=== PATIENT | female | born 1985 | race Caucasian/White ===

== ENCOUNTER 2017-02-26 21:25 | Observation (INO) | payer BC ==
[2017-02-26] MEDS ORDERED: Sodium Chloride 0.9% 10 ML Syringe FLUSH PRN (21:35)
[2017-02-26] MEDS ORDERED: Sodium Chloride 0.9% 2.5 ML Syringe FLUSH PRN (21:35)
[2017-02-26] MEDS ORDERED: Sodium Chloride 0.9% 1,000 ML IV ONE (21:37)
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
[2017-02-26 22:18] LABS: CHLORIDE,CL 108 mmol/L (98-110); SODIUM,NA 145 mmol/L (136-146)
[2017-02-26] MEDS ORDERED: Magnesium Oxide 400 MG Tab PO ONE (22:31)
[2017-02-27] MEDS ORDERED: Ondansetron 4 MG/2 ML SDV IVPUSH PRN (00:40)
[2017-02-27] MEDS ORDERED: Sodium Chloride 0.9% 1,000 ML IV SCH (00:45)
[2017-02-27] MEDS ORDERED: Thiamine 200 MG/2 ML MDV IV SCH (00:45)
[2017-02-27] MEDS ORDERED: Magnesium Sulfate/Water 2 GM in Premix Bag 1 BAG IV ONE (01:44)
[2017-02-27] MEDS: Folic Acid 50 MG/10 ML MDV SUBCUT SCH ×2 (01:49→09:18)
[2017-02-27] MEDS: LORazepam 2 MG/ML MDV IVPUSH PRN ×2 (02:05→09:19)
[2017-02-27] MEDS: Thiamine 100 MG in Sodium Chloride 0.9% 100 ML IV SCH ×2 (02:10→09:18)
[2017-02-27 06:08] LABS: CHLORIDE,CL 109 mmol/L (98-110); SODIUM,NA 142 mmol/L (136-146)
[2017-02-27 08:02] VITALS: BP 93/53
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
== END 2017-02-27 14:14 | disposition home or self-care (01) ==
LOC: MW.ED 21:25 → EDSEX 21:25 → MW.MS 23:49 → MW.ICU 02-27 01:52
PROVIDERS: ADMIT Internal Medicine; ATTEND Internal Medicine
DX: F10.129 Alcohol abuse with intoxication, unspecified (principal); M17.12 Unilateral primary osteoarthritis, left knee; F17.210 Nicotine dependence, cigarettes, uncomplicated; Z98.51 Tubal ligation status; Z98.890 Other specified postprocedural states; Z79.899 Other long term (current) drug therapy
CPT/HCPCS: 36415; 70450; 71010; 72170; 73560; 80048; 80053; 80305; 81001; 83735; 84702; 85025; 93005; 96361; 96365; 96367; 96372; 96375; 96376; 99285; A9270; G0378; G0480; J2060; J3411; J3475; J7030; J7040; 96360

== ENCOUNTER 2017-04-12 17:31 | Emergency (ER) | payer BC ==
[2017-04-12] MEDS ORDERED: Sodium Chloride 0.9% 1,000 ML IV ONE ×2 (17:34→18:10)
[2017-04-12] MEDS ORDERED: Ondansetron 4 MG/2 ML SDV IVPUSH ONE (17:34)
--- NOTE | 2017-04-12 18:18 | EDM.PDOC ---
ED HPI GENERAL MEDICAL PROBLEM - General Chief Complaint: General Stated Complaint: WEAKNESS, SICKNESS Time Seen by Provider: 04/12/17 17:35 Source of Information: Reports: Patient History Limitations: Reports: No Limitations - History of Present Illness INITIAL COMMENTS - FREE TEXT/NARRATIVE: History of present illness: [31-year-old female presenting to ED via EMS secondary to complaints of being weak. Patient indicates that she does drink everyday but denies drug] Review of systems: As per history of present illness and below otherwise all systems reviewed and negative. Past medical history: As per history of present illness and as reviewed below otherwise noncontributory. Surgical history: As per history of present illness and as reviewed below otherwise noncontributory. Social history: No reported history of drug or alcohol abuse. Family history: As per history of present illness and as reviewed below otherwise noncontributory. Physical exam: HEENT: Atraumatic, normocephalic, pupils reactive, negative for conjunctival pallor or scleral icterus, mucous membranes moist, throat clear, neck supple, nontender, trachea midline. Lungs: Clear to auscultation, breath sounds equal bilaterally, chest nontender. Heart: S1S2, regular, negative for clicks, rubs, or JVD. Abdomen: Soft, nondistended, nontender. Negative for masses or hepatosplenomegaly. Negative for costovertebral tenderness. Pelvis: Stable nontender. Genitourinary: Deferred. Rectal: Deferred. Extremities: Atraumatic, negative for cords or calf pain. Neurovascular unremarkable. Neuro: Awake, alert, oriented. Cranial nerves II through XII unremarkable. Cerebellum unremarkable. Motor and sensory unremarkable throughout. Exam nonfocal. Patient hypotensive with lactic acid level obtain blood cultures obtained you have had started at 2 mics per kilo per minute and the third liter of normal saline initiated. Patient continues to be verbally responsive and oriented to place and time despite having a mean arterial pressure 45-50 Spoke to Abena Rodrigez in the ED he agreed to receive patient is a transfer ER to ER. Diagnostics: [CBC, CMP, amylase, lipase, urine drug screen, UA, EtOH, blood cultures, lactic acid] Therapeutics: [IV fluid and Levophed, Zosyn, and] Impression: [Renal failure, hypertension] Plan: [Transfer] Definitive disposition and diagnosis as appropriate pending reevaluation and review of above. 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 Psychiatric History: Reports: None Endocrine/Metabolic History: Reports: None Hematologic History: Reports: None Immunologic History: Reports: None Oncologic (Cancer) History: Reports: None Dermatologic History: Reports: None - Infectious Disease History Infectious Disease History: Reports: Chicken Pox - Past Surgical History Head Surgeries/Procedures: Reports: None HEENT Surgical History: Reports: None Cardiovascular Surgical History: Reports: None Respiratory Surgical History: Reports: None GI Surgical History: Reports: None Female Surgical History: Reports: D&C, Tubal Ligation Endocrine Surgical History: Reports: None Neurological Surgical History: Reports: None Musculoskeletal Surgical History: Reports: None Dermatological Surgical History: Reports: None Social & Family History - Family History Family Medical History: Noncontributory - Tobacco Use Smoking Status *Q: Never Smoker Years of Tobacco use: 10 Packs/Tins Daily: 0.5 Second Hand Smoke Exposure: No - Caffeine Use Caffeine Use: Reports: None - Alcohol Use Days Per Week of Alcohol Use: 5 Number of Drinks Per Day: 2 Total Drinks Per Week: 10 - Recreational Drug Use Recreational Drug Use: No ED ROS GENERAL - Review of Systems Review Of Systems: See Below (History of present illness) ED EXAM, GENERAL - Physical Exam Exam: See Below (See history of present illness) Course - Vital Signs Last Recorded V/S: Last Vital Signs Temp 36.7 C 04/12/17 19:05 Pulse 110 H 04/12/17 19:05 Resp 14 04/12/17 19:05 BP 66/33 L 04/12/17 19:05 Pulse Ox 100 04/12/17 19:05 - Orders/Labs/Meds Orders: Active Orders 24 hr Category Date Time Status EKG Documentation Completion [RC] STAT Care 04/12/17 18:32 Active AMYLASE [CHEM] Stat Lab 04/12/17 17:51 Results COMPREHENSIVE METABOLIC PN,CMP [CHEM] Stat Lab 04/12/17 17:51 Results CULTURE BLOOD [BC] Stat Lab 04/12/17 18:22 Ordered CULTURE BLOOD [BC] Stat Lab 04/12/17 18:22 Ordered LIPASE [CHEM] Stat Lab 04/12/17 17:51 Results Norepinephrine [Levophed] 4 mg Med 04/12/17 18:45 Active Sodium Chloride 0.9% [Normal Saline] 250 ml IV TITRATE Vancomycin [Vancocin] 1 gm Med 04/12/17 19:15 Ordered Sodium Chloride 0.9% [Normal Saline] 250 ml IV ONETIME Blood Culture x2 Reflex Set [OM.PC] Stat Oth 04/12/17 18:22 Ordered Medication Orders Norepinephrine Bitartrate 4 mg (/ Sodium Chloride) 254 mls @ 7.62 mls/hr IV TITRATE KATIE; 2 MCG/MIN PRN Reason: Protocol Labs: Laboratory Tests 04/12/17 04/12/17 04/12/17 Range/Units 17:51 17:51 17:51 WBC 11.12 H (4.0-11.0) K/uL RBC 3.63 L (4.30-5.90) M/uL Hgb 10.8 L (12.0-16.0) g/dL Hct 36.6 (36.0-46.0) % MCV 100.8 H (80.0-98.0) fL MCH 29.8 (27.0-32.0) pg MCHC 29.5 L (31.0-37.0) g/dL RDW Std Deviation 58.3 (28.0-62.0) fl RDW Coeff of Diane 16 H (11.0-15.0) % Plt Count 87 L (150-400) K/uL MPV 10.80 (7.40-12.00) fL Add Manual Diff YES Neutrophils % (Manual) 68 (48.0-80.0) % Band Neutrophils % 8 % Lymphocytes % (Manual) 9 L (16.0-40.0) % Monocytes % (Manual) 15 (0.0-15.0) % Nucleated RBC % 0.0 /100WBC Absolute Seg Neuts 7.6 Band Neutrophils # 0.9 Lymphocytes # (Manual) 1.0 Monocytes # (Manual) 1.7 Nucleated RBCs # 0 K/uL Lactate (0.20-2.00) mmol/L Sodium 134 L (136-146) mmol/L Chloride 88 L (98-110) mmol/L BUN 21 (6.0-23.0) mg/dL Creatinine 3.8 H (0.6-1.5) mg/dL Est Cr Clr Drug Dosing 16.66 mL/min Estimated GFR (MDRD) 13.8 ml/min Glucose 97 (60-110) mg/dL POC Glucose (60-110) mg/dL Calcium 7.3 L (8.8-10.8) mg/dL Total Bilirubin 1.2 (0.1-1.5) mg/dL AST 109 H (5-40) IU/L ALT 46 (8-54) IU/L Alkaline Phosphatase 120 (40-150) Troponin I < 0.10 (0.0-0.29) NG/ML Total Protein 7.7 (6.0-8.0) g/dL Albumin 4.2 (3.5-5.0) g/dL Globulin 3.5 (2.0-3.5) g/dL Albumin/Globulin Ratio 1.2 L (1.3-2.8) Amylase 63 (10-90) U/L Lipase 148 H (7-80) U/L Urine Color Urine Appearance Urine pH (5.0-8.0) Ur Specific [place] (1.001-1.035) Urine Protein (NEGATIVE) mg/dL Urine Glucose (UA) (NEGATIVE) mg/dL Urine Ketones (NEGATIVE) mg/dL Urine Occult Blood (NEGATIVE) Urine Nitrite (NEGATIVE) Urine Bilirubin (NEGATIVE) Urine Urobilinogen (<2.0) EU/dL Ur Leukocyte Esterase (NEGATIVE) Urine RBC (0-2/HPF) Urine WBC (0-5/HPF) Ur Epithelial Cells (NONE-FEW) Amorphous Sediment (NEGATIVE) Urine Bacteria (NEGATIVE) Urine HCG, Qual (NEGATIVE) Urine Opiates Screen (NEGATIVE) Ur Oxycodone Screen (NEGATIVE) Urine Methadone Screen (NEGATIVE) Ur Barbiturates Screen (NEGATIVE) Ur Phencyclidine Scrn (NEGATIVE) Ur Amphetamine Screen (NEGATIVE) U Methamphetamines Scrn (NEGATIVE) U Benzodiazepines Scrn (NEGATIVE) U Cocaine Metab Screen (NEGATIVE) U Marijuana (THC) Screen (NEGATIVE) Ethyl Alcohol mg/dL 04/12/17 04/12/17 04/12/17 Range/Units 17:51 17:56 18:00 WBC (4.0-11.0) K/uL RBC (4.30-5.90) M/uL Hgb (12.0-16.0) g/dL Hct (36.0-46.0) % MCV (80.0-98.0) fL MCH (27.0-32.0) pg MCHC (31.0-37.0) g/dL RDW Std Deviation (28.0-62.0) fl RDW Coeff of Diane (11.0-15.0) % Plt Count (150-400) K/uL MPV (7.40-12.00) fL Add Manual Diff Neutrophils % (Manual) (48.0-80.0) % Band Neutrophils % % Lymphocytes % (Manual) (16.0-40.0) % Monocytes % (Manual) (0.0-15.0) % Nucleated RBC % /100WBC Absolute Seg Neuts Band Neutrophils # Lymphocytes # (Manual) Monocytes # (Manual) Nucleated RBCs # K/uL Lactate (0.20-2.00) mmol/L Sodium (136-146) mmol/L Chloride (98-110) mmol/L BUN (6.0-23.0) mg/dL Creatinine (0.6-1.5) mg/dL Est Cr Clr Drug Dosing mL/min Estimated GFR (MDRD) ml/min Glucose (60-110) mg/dL POC Glucose 110 (60-110) mg/dL Calcium (8.8-10.8) mg/dL Total Bilirubin (0.1-1.5) mg/dL AST (5-40) IU/L ALT (8-54) IU/L Alkaline Phosphatase (40-150) Troponin I (0.0-0.29) NG/ML Total Protein (6.0-8.0) g/dL Albumin (3.5-5.0) g/dL Globulin (2.0-3.5) g/dL Albumin/Globulin Ratio (1.3-2.8) Amylase (10-90) U/L Lipase (7-80) U/L Urine Color Urine Appearance Urine pH (5.0-8.0) Ur Specific [place] (1.001-1.035) Urine Protein (NEGATIVE) mg/dL Urine Glucose (UA) (NEGATIVE) mg/dL Urine Ketones (NEGATIVE) mg/dL Urine Occult Blood (NEGATIVE) Urine Nitrite (NEGATIVE) Urine Bilirubin (NEGATIVE) Urine Urobilinogen (<2.0) EU/dL Ur Leukocyte Esterase (NEGATIVE) Urine RBC (0-2/HPF) Urine WBC (0-5/HPF) Ur Epithelial Cells (NONE-FEW) Amorphous Sediment (NEGATIVE) Urine Bacteria (NEGATIVE) Urine HCG, Qual NEGATIVE (NEGATIVE) Urine Opiates Screen (NEGATIVE) Ur Oxycodone Screen (NEGATIVE) Urine Methadone Screen (NEGATIVE) Ur Barbiturates Screen (NEGATIVE) Ur Phencyclidine Scrn (NEGATIVE) Ur Amphetamine Screen (NEGATIVE) U Methamphetamines Scrn (NEGATIVE) U Benzodiazepines Scrn (NEGATIVE) U Cocaine Metab Screen (NEGATIVE) U Marijuana (THC) Screen (NEGATIVE) Ethyl Alcohol 238.4 mg/dL 04/12/17 04/12/17 04/12/17 Range/Units 18:00 18:00 18:52 WBC (4.0-11.0) K/uL RBC (4.30-5.90) M/uL Hgb (12.0-16.0) g/dL Hct (36.0-46.0) % MCV (80.0-98.0) fL MCH (27.0-32.0) pg MCHC (31.0-37.0) g/dL RDW Std Deviation (28.0-62.0) fl RDW Coeff of Diane (11.0-15.0) % Plt Count (150-400) K/uL MPV (7.40-12.00) fL Add Manual Diff Neutrophils % (Manual) (48.0-80.0) % Band Neutrophils % % Lymphocytes % (Manual) (16.0-40.0) % Monocytes % (Manual) (0.0-15.0) % Nucleated RBC % /100WBC Absolute Seg Neuts Band Neutrophils # Lymphocytes # (Manual) Monocytes # (Manual) Nucleated RBCs # K/uL Lactate 9.9 H (0.20-2.00) mmol/L Sodium (136-146) mmol/L Chloride (98-110) mmol/L BUN (6.0-23.0) mg/dL Creatinine (0.6-1.5) mg/dL Est Cr Clr Drug Dosing mL/min Estimated GFR (MDRD) ml/min Glucose (60-110) mg/dL POC Glucose (60-110) mg/dL Calcium (8.8-10.8) mg/dL Total Bilirubin (0.1-1.5) mg/dL AST (5-40) IU/L ALT (8-54) IU/L Alkaline Phosphatase (40-150) Troponin I (0.0-0.29) NG/ML Total Protein (6.0-8.0) g/dL Albumin (3.5-5.0) g/dL Globulin (2.0-3.5) g/dL Albumin/Globulin Ratio (1.3-2.8) Amylase (10-90) U/L Lipase (7-80) U/L Urine Color DARK YELLOW Urine Appearance SLT CLOUDY Urine pH 5.5 (5.0-8.0) Ur Specific [place] >= 1.030 (1.001-1.035) Urine Protein 100 (NEGATIVE) mg/dL Urine Glucose (UA) NEGATIVE (NEGATIVE) mg/dL Urine Ketones TRACE H (NEGATIVE) mg/dL Urine Occult Blood LARGE H (NEGATIVE) Urine Nitrite NEGATIVE (NEGATIVE) Urine Bilirubin SMALL H (NEGATIVE) Urine Urobilinogen 1.0 (<2.0) EU/dL Ur Leukocyte Esterase NEGATIVE (NEGATIVE) Urine RBC 3-5 (0-2/HPF) Urine WBC 0-1 (0-5/HPF) Ur Epithelial Cells FEW (NONE-FEW) Amorphous Sediment MODERATE (NEGATIVE) Urine Bacteria FEW (NEGATIVE) Urine HCG, Qual (NEGATIVE) Urine Opiates Screen NEGATIVE (NEGATIVE) Ur Oxycodone Screen NEGATIVE (NEGATIVE) Urine Methadone Screen NEGATIVE (NEGATIVE) Ur Barbiturates Screen NEGATIVE (NEGATIVE) Ur Phencyclidine Scrn NEGATIVE (NEGATIVE) Ur Amphetamine Screen NEGATIVE (NEGATIVE) U Methamphetamines Scrn NEGATIVE (NEGATIVE) U Benzodiazepines Scrn NEGATIVE (NEGATIVE) U Cocaine Metab Screen NEGATIVE (NEGATIVE) U Marijuana (THC) Screen NEGATIVE (NEGATIVE) Ethyl Alcohol mg/dL Meds: Medications Generic Name Dose Route Start Last Admin Trade Name Freq PRN Reason Stop Dose Admin Norepinephrine Bitartrate 4 mg 254 mls @ 7.62 mls/hr 04/12/17 18:45 / Sodium Chloride IV TITRATE KATIE Protocol 2 MCG/MIN Discontinued Medications Generic Name Dose Route Start Last Admin Trade Name Nick PRN Reason Stop Dose Admin Sodium Chloride 1,000 mls @ 999 mls/hr 04/12/17 17:34 04/12/17 17:54 Normal Saline IV 04/12/17 18:34 999 mls/hr STAT ONE Administration Sodium Chloride 1,000 mls @ 999 mls/hr 04/12/17 18:10 04/12/17 18:13 Normal Saline IV 04/12/17 19:10 999 mls/hr .Bolus ONE Administration Piperacillin Sod/Tazobactam 50 mls @ 100 mls/hr 04/12/17 18:22 04/12/17 19:02 Sod 3.375 gm/ Sodium Chloride IV 04/12/17 18:51 100 mls/hr ONETIME ONE Administration Norepinephrine Bitartrate Confirm 04/12/17 18:46 04/12/17 19:01 Norepinephr-0.9% Nacl 4 Mg/250 Administered 04/12/17 18:47 2 mg Dose Administration 250 mls @ as directed IV .STK-MED ONE Ondansetron HCl 8 mg 04/12/17 17:34 04/12/17 17:54 Zofran IVPUSH 04/12/17 17:35 8 mg ONETIME ONE Administration Departure - Departure Time of Disposition: 19:31 Disposition: DC/Tfer to Acute Hospital 02 Condition: fair Clinical Impression: Hypotension, Acute renal failure - Discharge Information Forms: ED Department Discharge - My Orders Last 24 Hours: My Active Orders 04/12/17 18:22 CULTURE BLOOD [BC] Stat CULTURE BLOOD [BC] Stat Blood Culture x2 Reflex Set [OM.PC] Stat 04/12/17 18:32 EKG Documentation Completion [RC] STAT 04/12/17 18:45 Norepinephrine [Levophed] 4 mg Sodium Chloride 0.9% [Normal Saline] 250 ml IV TITRATE 04/12/17 19:15 Vancomycin [Vancocin] 1 gm Sodium Chloride 0.9% [Normal Saline] 250 ml IV ONETIME - Assessment/Plan Last 24 Hours: My Active Orders 04/12/17 18:22 CULTURE BLOOD [BC] Stat CULTURE BLOOD [BC] Stat Blood Culture x2 Reflex Set [OM.PC] Stat 04/12/17 18:32 EKG Documentation Completion [RC] STAT 04/12/17 18:45 Norepinephrine [Levophed] 4 mg Sodium Chloride 0.9% [Normal Saline] 250 ml IV TITRATE 04/12/17 19:15 Vancomycin [Vancocin] 1 gm Sodium Chloride 0.9% [Normal Saline] 250 ml IV ONETIME
[2017-04-12 18:20] LABS: CHLORIDE,CL 88 mmol/L (98-110); SODIUM,NA 134 mmol/L (136-146)
[2017-04-12] MEDS ORDERED: Piperacillin/Tazobactam 3.375 GM in Sodium Chloride 0.9% 50 ML IV ONE (18:22)
[2017-04-12] MEDS ORDERED: Norepinephrine 4 MG in Dextrose 5% in Water 246 ML IV SCH ×2 (18:30)
[2017-04-12] MEDS ORDERED: Hydrocortisone Sodium Succinate 100 MG/2 ML SDV IVPUSH ONE (19:36)
[2017-04-12 20:42] VITALS: BP 79/43
== END 2017-04-12 20:25 ==
LOC: MW.ED 17:31
DX: I95.9 Hypotension, unspecified (principal); N17.9 Acute kidney failure, unspecified; Z98.51 Tubal ligation status
CPT/HCPCS: 36415; 80053; 80305; 81001; 81025; 82150; 82962; 83605; 83690; 84484; 85025; 87040; 93005; 96361; 96365; 96367; 96375; 99285; G0480; J1720; J2405; J2543; J3370; J7040; J7050

== ENCOUNTER 2017-05-25 11:31 | Emergency (ER) | payer BC ==
[2017-05-25] MEDS ORDERED: Sodium Chloride 0.9% 1,000 ML IV ONE (11:32)
[2017-05-25] MEDS ORDERED: Ondansetron 4 MG/2 ML SDV IVPUSH ONE (11:47)
--- NOTE | 2017-05-25 12:03 | EDM.PDOC ---
ED HPI GENERAL MEDICAL PROBLEM - General Chief Complaint: Gastrointestinal Problem Stated Complaint: ALCOHOL DETOX Time Seen by Provider: 05/25/17 11:44 - History of Present Illness INITIAL COMMENTS - FREE TEXT/NARRATIVE: HISTORY AND PHYSICAL: History of present illness: Is 31-year-old female with history of alcohol abuse presents with a concern of hyperemesis she denies chest pain shortness of breath fever chills or other concern she states she was drinking heavily yesterday. Review of systems: As per history of present illness and below otherwise all systems reviewed and negative. Past medical history: As per history of present illness and as reviewed below otherwise noncontributory. Surgical history: As per history of present illness and as reviewed below otherwise noncontributory. Social history: No reported history of drug or alcohol abuse. Family history: As per history of present illness and as reviewed below otherwise noncontributory. Physical exam: HEENT: Atraumatic, normocephalic, pupils reactive, negative for conjunctival pallor or scleral icterus, mucous membranes dry, throat clear, neck supple, nontender, trachea midline. Lungs: Clear to auscultation, breath sounds equal bilaterally, chest nontender. Heart: S1S2, regular, negative for clicks, rubs, or JVD. Abdomen: Soft, nondistended, nontender. Negative for masses or hepatosplenomegaly. Negative for costovertebral tenderness. Pelvis: Stable nontender. Genitourinary: Deferred. Rectal: Deferred. Extremities: Atraumatic, negative for cords or calf pain. Neurovascular unremarkable. Neuro: Awake, alert, oriented. Cranial nerves II through XII unremarkable. Cerebellum unremarkable. Motor and sensory unremarkable throughout. Exam nonfocal. Diagnostics: CBC CMP lipase UA hCG chest x-ray Therapeutics: Normal saline 1 L bolus Zofran 4 mg IV Impression: #1 alcohol abuse #2 hyperemesis Definitive disposition and diagnosis as appropriate pending reevaluation and review of above. abdomen Pain Score (Numeric/FACES): 8 - Related Data Allergies Allergy/AdvReac Type Severity Reaction Status Date / Time No Known Allergies Allergy Verified 05/25/17 11:40 Home Meds: Home Meds LORazepam [Ativan] 0 mg PO Q6HR PRN 02/26/17 [History] Past Medical History HEENT History: Reports: None Cardiovascular History: Reports: None Respiratory History: Reports: None Gastrointestinal History: Reports: Pancreatitis Genitourinary History: Reports: None [employer] WORK[employer] History: Reports: Musculoskeletal History: Reports: Arthritis Other Musculoskeletal History: Arthritis to left knee Neurological History: Reports: Concussion, Seizure Other Neuro History: Voices seizure-like event x 7 months ago. Psychiatric History: Reports: None Endocrine/Metabolic History: Reports: None Hematologic History: Reports: None Immunologic History: Reports: None Oncologic (Cancer) History: Reports: None Dermatologic History: Reports: None - Infectious Disease History Infectious Disease History: Reports: Chicken Pox - Past Surgical History Head Surgeries/Procedures: Reports: None HEENT Surgical History: Reports: None Cardiovascular Surgical History: Reports: None Respiratory Surgical History: Reports: None GI Surgical History: Reports: None Female Surgical History: Reports: D&C, Tubal Ligation Endocrine Surgical History: Reports: None Neurological Surgical History: Reports: None Musculoskeletal Surgical History: Reports: None Dermatological Surgical History: Reports: None Social & Family History - Family History Family Medical History: Noncontributory - Tobacco Use Smoking Status *Q: Current Every Day Smoker Years of Tobacco use: 10 Packs/Tins Daily: 1 Second Hand Smoke Exposure: No - Caffeine Use Caffeine Use: Reports: None - Alcohol Use Days Per Week of Alcohol Use: 5 Number of Drinks Per Day: 2 Total Drinks Per Week: 10 - Recreational Drug Use Recreational Drug Use: No ED ROS GENERAL - Review of Systems Review Of Systems: ROS reveals no pertinent complaints other than HPI. ED EXAM, GENERAL - Physical Exam Exam: See Below (See dictation) Course - Vital Signs Last Recorded V/S: Last Vital Signs Temp 36.1 C 05/25/17 11:31 Pulse 123 H 05/25/17 11:31 Resp 18 05/25/17 11:31 BP 117/65 05/25/17 11:31 Pulse Ox 100 05/25/17 11:31 - Orders/Labs/Meds Orders: Active Orders 24 hr Category Date Time Status UA W/MICROSCOPIC [URIN] Stat Lab 05/25/17 11:32 Uncollected Labs: Laboratory Tests 05/25/17 05/25/17 05/25/17 Range/Units 11:46 11:46 11:46 WBC 7.36 (4.0-11.0) K/uL RBC 4.19 L (4.30-5.90) M/uL Hgb 12.8 (12.0-16.0) g/dL Hct 40.0 (36.0-46.0) % MCV 95.5 (80.0-98.0) fL MCH 30.5 (27.0-32.0) pg MCHC 32.0 (31.0-37.0) g/dL RDW Std Deviation 56.7 (28.0-62.0) fl RDW Coeff of Diane 16 H (11.0-15.0) % Plt Count 137 L (150-400) K/uL MPV 9.60 (7.40-12.00) fL Add Manual Diff YES Neutrophils % (Manual) 84 H (48.0-80.0) % Band Neutrophils % 1 % Lymphocytes % (Manual) 13 L (16.0-40.0) % Eosinophils % (Manual) 2 (0.0-7.0) % Nucleated RBC % 0.0 /100WBC Absolute Seg Neuts 6.2 Band Neutrophils # 0.1 Lymphocytes # (Manual) 1.0 Eosinophils # (Manual) 0.1 Nucleated RBCs # 0 K/uL Sodium 138 (136-146) mmol/L Potassium 4.8 (3.5-5.1) mmol/L Chloride 90 L (98-110) mmol/L Carbon Dioxide 7 L (21-31) mmol/L BUN 18 (6.0-23.0) mg/dL Creatinine 1.7 H (0.6-1.5) mg/dL Est Cr Clr Drug Dosing 35.72 mL/min Estimated GFR (MDRD) 34.8 ml/min Glucose 125 H (60-110) mg/dL Calcium 8.6 L (8.8-10.8) mg/dL Total Bilirubin 1.0 (0.1-1.5) mg/dL AST 84 H (5-40) IU/L ALT 47 (8-54) IU/L Alkaline Phosphatase 152 H (40-150) Total Protein 9.4 H (6.0-8.0) g/dL Albumin 5.0 (3.5-5.0) g/dL Globulin 4.4 H (2.0-3.5) g/dL Albumin/Globulin Ratio 1.1 L (1.3-2.8) Amylase 38 (10-90) U/L Lipase 48 (7-80) U/L HCG, Qual NEGATIVE (NEG) Meds: Medications Discontinued Medications Generic Name Dose Route Start Last Admin Trade Name Nick PRN Reason Stop Dose Admin Sodium Chloride 1,000 mls @ 999 mls/hr 05/25/17 11:32 05/25/17 11:49 Normal Saline IV 05/25/17 12:32 999 mls/hr .Bolus ONE Administration Ondansetron HCl 4 mg 05/25/17 11:47 05/25/17 11:51 Zofran IVPUSH 05/25/17 11:48 4 mg ONETIME ONE Administration Departure - Departure Time of Disposition: 12:50 Disposition: Home, Self-Care 01 Condition: Good Clinical Impression: Gastritis, Alcohol abuse - Discharge Information Forms: ED Department Discharge Additional Instructions: The following information is given to patients seen in the emergency department who are being discharged to home. This information is to outline your options for follow-up care. We provide all patients seen in our emergency department with a follow-up referral. The need for follow-up, as well as the timing and circumstances, are variable depending upon the specifics of your emergency department visit. If you don't have a primary care physician on staff, we will provide you with a referral. We always advise you to contact your personal physician following an emergency department visit to inform them of the circumstance of the visit and for follow-up with them and/or the need for any referrals to a consulting specialist. The emergency department will also refer you to a specialist when appropriate. This referral assures that you have the opportunity for followup care with a specialist. All of these measure are taken in an effort to provide you with optimal care, which includes your followup. Under all circumstances we always encourage you to contact your private physician who remains a resource for coordinating your care. When calling for followup care, please make the office aware that this follow-up is from your recent emergency room visit. If for any reason you are refused follow-up, please contact the [facility] emergency department at and asked to speak to the emergency department charge nurse. [facility] [address] [place] [id number] Stop drinking Protonix as prescribed clear liquids and 24 hours return as needed as discussed - My Orders Last 24 Hours: My Active Orders 05/25/17 11:32 UA W/MICROSCOPIC [URIN] Stat - Assessment/Plan Last 24 Hours: My Active Orders 05/25/17 11:32 UA W/MICROSCOPIC [URIN] Stat
--- NOTE | 2017-05-25 12:46 | CR ---
EXAMINATION: Portable chest radiograph. HISTORY: Pain. FINDINGS: The trachea is midline. The cardiomediastinal silhouette is within normal limits. No pulmonary infil trates, effusions or pneumothorax. Osseous structures appear unremarkable. There is S-shaped scoliosis of the thoracolumbar spine. IMPRESSION: No acute cardiopulmonary process.
[2017-05-25 13:09] VITALS: BP 122/61
== END 2017-05-25 13:03 | disposition home or self-care (01) ==
LOC: MW.ED 11:31
DX: K29.70 Gastritis, unspecified, without bleeding (principal); F10.10 Alcohol abuse, uncomplicated; M19.90 Unspecified osteoarthritis, unspecified site; F17.210 Nicotine dependence, cigarettes, uncomplicated; Z98.51 Tubal ligation status
CPT/HCPCS: 36415; 71010; 80053; 82150; 83690; 84703; 85025; 96361; 96374; 99284; J2405; J7040; 99282

== ENCOUNTER 2017-07-11 11:49 | Inpatient (IN) | payer BC ==
--- NOTE | 2017-07-11 12:30 | EDM.PDOC ---
ED HPI GENERAL MEDICAL PROBLEM - General Stated Complaint: WITHDRAWAL Time Seen by Provider: 07/11/17 12:20 Source of Information: Reports: Patient History Limitations: Reports: No Limitations - History of Present Illness INITIAL COMMENTS - FREE TEXT/NARRATIVE: HISTORY AND PHYSICAL: [] 31-year-old female presenting with abdominal pain she has stopped drinking since last night history of chronic drinking 750 mL daily History of Present Illness: []This is the first time the patient has ever stated that she wanted to stop her drinking according to the Patient states she's had pancreatitis in the past She has had a "seizure" last night, unwitnessed Patient has had enlarged liver and liver enzymes been elevated previously Review of Systems: As per history of present illness and below otherwise all systems reviewed and negative. Past medical history: As per history of present illness and as reviewed below otherwise noncontributory. Surgical history: As per history of present illness and as reviewed below otherwise noncontributory. Social history: No reported history of drug or alcohol abuse. Family history: As per history of present illness and as reviewed below otherwise noncontributory. Physical exam: Thin female who is nontoxic answering questions appropriately in full sentences without any shortness of breath HEENT: Atraumatic, normocehpalic, pupils reactive, negative for conjunctival pallor or scleral icterus, mucous membranes moist, throat clear, neck supple, nontender, trachea midline. Lungs: Clear to auscultation, breath sounds equal bilaterally, chest non tender. Heart: S1S2, regular, negative for clicks, rubs, or JVD. Abdomen: Firm, tender to the right on palpation no rebound and no guarding. Negative for masses. Hepatomegaly CT scan. Negative for costovertebral tenderness. Pelvis: Stable nontender. Genitourinary: Deferred. Rectal: Deferred Extremities: Atraumatic, negative for cords or calf pain. Neurovascular unremarkable. Neuro: Awake, alert, oriented. Cranial nerves II through XII unremarkable. Cerebellum unremarkable. Motor and sensory unremarkable throughout. Exam nonfocal. Discussed patient with Dr. Parmar who has accepted patient admission to ICU. Diagnostics: [CBC CMP troponin abdominal pelvic CT chest x-ray] Therapeutics: [IV banana bag] Impression: [Hyponatremia Hypokalemia Alcohol dependence] Plan: []Admit to intensive care as inpatient Definitive disposition and diagnosis as appropriate pending reevaluation and review of above. Onset: Gradual Duration: Chronic, Getting Worse Location: Reports: Generalized Quality: Reports: Same as Previous Episode Severity: Moderate Associated Symptoms: Reports: Loss of Appetite generalized Pain Score (Numeric/FACES): 9 - Related Data Allergies Allergy/AdvReac Type Severity Reaction Status Date / Time No Known Allergies Allergy Verified 07/11/17 12:22 Home Meds: Home Meds . 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 Psychiatric History: Reports: None Endocrine/Metabolic History: Reports: None Hematologic History: Reports: None Immunologic History: Reports: None Oncologic (Cancer) History: Reports: None Dermatologic History: Reports: None - Infectious Disease History Infectious Disease History: Reports: Chicken Pox - Past Surgical History Head Surgeries/Procedures: Reports: None HEENT Surgical History: Reports: None Cardiovascular Surgical History: Reports: None Respiratory Surgical History: Reports: None GI Surgical History: Reports: None Female Surgical History: Reports: D&C, Tubal Ligation Endocrine Surgical History: Reports: None Neurological Surgical History: Reports: None Musculoskeletal Surgical History: Reports: None Dermatological Surgical History: Reports: None Social & Family History - Family History Family Medical History: Noncontributory - Tobacco Use Smoking Status *Q: Current Every Day Smoker Years of Tobacco use: 10 Packs/Tins Daily: 1 Second Hand Smoke Exposure: No - Caffeine Use Caffeine Use: Reports: None - Alcohol Use Days Per Week of Alcohol Use: 5 Number of Drinks Per Day: 2 Total Drinks Per Week: 10 - Recreational Drug Use Recreational Drug Use: No ED ROS GENERAL - Review of Systems Review Of Systems: ROS reveals no pertinent complaints other than HPI. ED EXAM, GENERAL - Physical Exam Exam: See Below (see dictation) Course - Vital Signs Last Recorded V/S: Last Vital Signs Temp 36.6 C 07/11/17 12:19 Pulse 97 07/11/17 13:30 Resp 16 07/11/17 13:30 BP 122/78 07/11/17 13:30 Pulse Ox 99 07/11/17 13:30 - Orders/Labs/Meds Orders: Active Orders 24 hr Category Date Time Status EKG Documentation Completion [RC] STAT Care 07/11/17 12:32 Active CBC WITH AUTO DIFF [HEME] Stat Lab 07/11/17 12:51 Received CULTURE URINE [RM] Stat Lab 07/11/17 13:01 Received MVI, Adult with Vitamin K [Infuvite Adult] 10 ml Med 07/11/17 12:39 Active Thiamine [Vitamin B-1] 100 mg Folic Acid 1 mg Sodium Chloride 0.9% [Normal Saline] 1,000 ml IV ONETIME Sodium Chloride 0.9% [Saline Flush] Med 07/11/17 12:32 Active 10 ml FLUSH ASDIRECTED PRN Sodium Chloride 0.9% [Saline Flush] Med 07/11/17 12:32 Active 2.5 ml FLUSH ASDIRECTED PRN Saline Lock Insert [OM.PC] Stat Oth 07/11/17 12:32 Ordered Medication Orders Multivitamins/Minerals 10 ml/Thiamine HCl 100 mg/ Folic Acid 1 mg/ Sodium Chloride 1,011.2 mls @ 250 drops/hr IV ONETIME ONE Stop: 07/14/17 01:19 Last Admin: 07/11/17 13:32 Dose: 250 drops/hr Sodium Chloride (Saline Flush) 10 ml FLUSH ASDIRECTED PRN PRN Reason: Keep Vein Open Sodium Chloride (Saline Flush) 2.5 ml FLUSH ASDIRECTED PRN PRN Reason: Keep Vein Open Labs: Laboratory Tests 07/11/17 07/11/17 07/11/17 Range/Units 12:51 12:51 12:51 Lactate 1.4 (0.20-2.00) mmol/L Sodium 131 L (136-146) mmol/L Potassium 2.8 L (3.5-5.1) mmol/L Chloride 84 L (98-110) mmol/L Carbon Dioxide 33 H (21-31) mmol/L BUN 11 (6.0-23.0) mg/dL Creatinine 0.6 (0.6-1.5) mg/dL Est Cr Clr Drug Dosing 104.98 mL/min Estimated GFR (MDRD) > 60.0 ml/min Glucose 128 H (60-110) mg/dL Calcium 10.5 (8.8-10.8) mg/dL Total Bilirubin 2.1 H (0.1-1.5) mg/dL AST 180 H (5-40) IU/L ALT 88 H (8-54) IU/L Alkaline Phosphatase 155 H (40-150) Troponin I < 0.10 (0.0-0.29) NG/ML Total Protein 8.0 (6.0-8.0) g/dL Albumin 4.0 (3.5-5.0) g/dL Globulin 4.0 H (2.0-3.5) g/dL Albumin/Globulin Ratio 1.0 L (1.3-2.8) Lipase 277 H (7-80) U/L TSH 3rd Generation 8.34 H (0.47-5.0) uIU/mL HCG, Qual (NEG) Urine Color Urine Appearance Urine pH (5.0-8.0) Ur Specific [place] (1.001-1.035) Urine Protein (NEGATIVE) mg/dL Urine Glucose (UA) (NEGATIVE) mg/dL Urine Ketones (NEGATIVE) mg/dL Urine Occult Blood (NEGATIVE) Urine Nitrite (NEGATIVE) Urine Bilirubin (NEGATIVE) Urine Ictotest Urine Urobilinogen (<2.0) EU/dL Ur Leukocyte Esterase (NEGATIVE) Urine RBC (0-2/HPF) Urine WBC (0-5/HPF) Ur Epithelial Cells (NONE-FEW) Amorphous Sediment (NEGATIVE) Urine Bacteria (NEGATIVE) Urine HCG, Qual (NEGATIVE) Urine Opiates Screen (NEGATIVE) Ur Oxycodone Screen (NEGATIVE) Urine Methadone Screen (NEGATIVE) Ur Barbiturates Screen (NEGATIVE) Ur Phencyclidine Scrn (NEGATIVE) Ur Amphetamine Screen (NEGATIVE) U Methamphetamines Scrn (NEGATIVE) U Benzodiazepines Scrn (NEGATIVE) U Cocaine Metab Screen (NEGATIVE) U Marijuana (THC) Screen (NEGATIVE) Ethyl Alcohol < 10.0 mg/dL 07/11/17 07/11/17 07/11/17 Range/Units 12:51 13:01 13:01 Lactate (0.20-2.00) mmol/L Sodium (136-146) mmol/L Potassium (3.5-5.1) mmol/L Chloride (98-110) mmol/L Carbon Dioxide (21-31) mmol/L BUN (6.0-23.0) mg/dL Creatinine (0.6-1.5) mg/dL Est Cr Clr Drug Dosing mL/min Estimated GFR (MDRD) ml/min Glucose (60-110) mg/dL Calcium (8.8-10.8) mg/dL Total Bilirubin (0.1-1.5) mg/dL AST (5-40) IU/L ALT (8-54) IU/L Alkaline Phosphatase (40-150) Troponin I (0.0-0.29) NG/ML Total Protein (6.0-8.0) g/dL Albumin (3.5-5.0) g/dL Globulin (2.0-3.5) g/dL Albumin/Globulin Ratio (1.3-2.8) Lipase (7-80) U/L TSH 3rd Generation (0.47-5.0) uIU/mL HCG, Qual NEGATIVE (NEG) Urine Color Urine Appearance Urine pH (5.0-8.0) Ur Specific [place] (1.001-1.035) Urine Protein (NEGATIVE) mg/dL Urine Glucose (UA) (NEGATIVE) mg/dL Urine Ketones (NEGATIVE) mg/dL Urine Occult Blood (NEGATIVE) Urine Nitrite (NEGATIVE) Urine Bilirubin (NEGATIVE) Urine Ictotest Urine Urobilinogen (<2.0) EU/dL Ur Leukocyte Esterase (NEGATIVE) Urine RBC (0-2/HPF) Urine WBC (0-5/HPF) Ur Epithelial Cells (NONE-FEW) Amorphous Sediment (NEGATIVE) Urine Bacteria (NEGATIVE) Urine HCG, Qual NEGATIVE (NEGATIVE) Urine Opiates Screen NEGATIVE (NEGATIVE) Ur Oxycodone Screen NEGATIVE (NEGATIVE) Urine Methadone Screen NEGATIVE (NEGATIVE) Ur Barbiturates Screen NEGATIVE (NEGATIVE) Ur Phencyclidine Scrn NEGATIVE (NEGATIVE) Ur Amphetamine Screen NEGATIVE (NEGATIVE) U Methamphetamines Scrn NEGATIVE (NEGATIVE) U Benzodiazepines Scrn NEGATIVE (NEGATIVE) U Cocaine Metab Screen NEGATIVE (NEGATIVE) U Marijuana (THC) Screen NEGATIVE (NEGATIVE) Ethyl Alcohol mg/dL 07/11/17 Range/Units 13:01 Lactate (0.20-2.00) mmol/L Sodium (136-146) mmol/L Potassium (3.5-5.1) mmol/L Chloride (98-110) mmol/L Carbon Dioxide (21-31) mmol/L BUN (6.0-23.0) mg/dL Creatinine (0.6-1.5) mg/dL Est Cr Clr Drug Dosing mL/min Estimated GFR (MDRD) ml/min Glucose (60-110) mg/dL Calcium (8.8-10.8) mg/dL Total Bilirubin (0.1-1.5) mg/dL AST (5-40) IU/L ALT (8-54) IU/L Alkaline Phosphatase (40-150) Troponin I (0.0-0.29) NG/ML Total Protein (6.0-8.0) g/dL Albumin (3.5-5.0) g/dL Globulin (2.0-3.5) g/dL Albumin/Globulin Ratio (1.3-2.8) Lipase (7-80) U/L TSH 3rd Generation (0.47-5.0) uIU/mL HCG, Qual (NEG) Urine Color DARK YELLOW Urine Appearance SLT CLOUDY Urine pH 8.5 H (5.0-8.0) Ur Specific [place] 1.010 (1.001-1.035) Urine Protein 30 (NEGATIVE) mg/dL Urine Glucose (UA) NEGATIVE (NEGATIVE) mg/dL Urine Ketones TRACE H (NEGATIVE) mg/dL Urine Occult Blood NEGATIVE (NEGATIVE) Urine Nitrite POSITIVE H (NEGATIVE) Urine Bilirubin MODERATE H (NEGATIVE) Urine Ictotest NEGATIVE Urine Urobilinogen >=8.0 H (<2.0) EU/dL Ur Leukocyte Esterase TRACE (NEGATIVE) Urine RBC 1-2 (0-2/HPF) Urine WBC 0-1 (0-5/HPF) Ur Epithelial Cells FEW (NONE-FEW) Amorphous Sediment FEW (NEGATIVE) Urine Bacteria RARE (NEGATIVE) Urine HCG, Qual (NEGATIVE) Urine Opiates Screen (NEGATIVE) Ur Oxycodone Screen (NEGATIVE) Urine Methadone Screen (NEGATIVE) Ur Barbiturates Screen (NEGATIVE) Ur Phencyclidine Scrn (NEGATIVE) Ur Amphetamine Screen (NEGATIVE) U Methamphetamines Scrn (NEGATIVE) U Benzodiazepines Scrn (NEGATIVE) U Cocaine Metab Screen (NEGATIVE) U Marijuana (THC) Screen (NEGATIVE) Ethyl Alcohol mg/dL Meds: Medications Generic Name Dose Route Start Last Admin Trade Name Freq PRN Reason Stop Dose Admin Multivitamins/Minerals 10 ml/ 1,011.2 mls @ 250 drops/hr 07/11/17 12:39 07/11 13:32 Thiamine HCl 100 mg/ Folic IV 07/14/17 01:19 250 drops/hr Acid 1 mg/ Sodium Chloride ONETIME ONE Administration Sodium Chloride 10 ml 07/11/17 12:32 Saline Flush FLUSH ASDIRECTED PRN Keep Vein Open Sodium Chloride 2.5 ml 07/11/17 12:32 Saline Flush FLUSH ASDIRECTED PRN Keep Vein Open Departure - Departure Time of Disposition: 14:47 Disposition: Admitted As Inpatient 65 Condition: Fair Clinical Impression: Alcohol abuse, Hyponatremia, Hypokalemia - Discharge Information Instructions: Chemical Dependency Referrals: PCP,None [Primary Care Provider] - - My Orders Last 24 Hours: My Active Orders 07/11/17 12:32 EKG Documentation Completion [RC] STAT Sodium Chloride 0.9% [Saline Flush] 10 ml FLUSH ASDIRECTED PRN Sodium Chloride 0.9% [Saline Flush] 2.5 ml FLUSH ASDIRECTED PRN Saline Lock Insert [OM.PC] Stat 07/11/17 12:39 MVI, Adult with Vitamin K [Infuvite Adult] 10 ml Thiamine [Vitamin B-1] 100 mg Folic Acid 1 mg Sodium Chloride 0.9% [Normal Saline] 1,000 ml IV ONETIME 07/11/17 12:51 CBC WITH AUTO DIFF [HEME] Stat 07/11/17 13:01 CULTURE URINE [RM] Stat - Assessment/Plan Last 24 Hours: My Active Orders 07/11/17 12:32 EKG Documentation Completion [RC] STAT Sodium Chloride 0.9% [Saline Flush] 10 ml FLUSH ASDIRECTED PRN Sodium Chloride 0.9% [Saline Flush] 2.5 ml FLUSH ASDIRECTED PRN Saline Lock Insert [OM.PC] Stat 07/11/17 12:39 MVI, Adult with Vitamin K [Infuvite Adult] 10 ml Thiamine [Vitamin B-1] 100 mg Folic Acid 1 mg Sodium Chloride 0.9% [Normal Saline] 1,000 ml IV ONETIME 07/11/17 12:51 CBC WITH AUTO DIFF [HEME] Stat 07/11/17 13:01 CULTURE URINE [RM] Stat
[2017-07-11] MEDS ORDERED: Sodium Chloride 0.9% 2.5 ML Syringe FLUSH PRN (12:32)
[2017-07-11] MEDS ORDERED: Sodium Chloride 0.9% 10 ML Syringe FLUSH PRN (12:32)
[2017-07-11] MEDS ORDERED: MVI, Adult with Vitamin K 10 ML, Thiamine 100 MG, Folic Acid 1 MG in Sodium Chloride 0.... IV ONE ×4 (12:39)
[2017-07-11 13:29] LABS: CHLORIDE,CL 84 mmol/L (98-110); SODIUM,NA 131 mmol/L (136-146)
--- NOTE | 2017-07-11 14:19 | CR ---
EXAMINATION: Two-view chest (PA and Lateral views). HISTORY: Shortness of breath. FINDINGS: The trachea is midline. The cardiomediastinal silhouette is within normal limits. No pulmonary infilt rates, effusions or pneumothorax. Osseous structures appear unremarkable. IMPRESSION: No acute cardiopulmonary process.
--- NOTE | 2017-07-11 14:26 | CT ---
CT of the abdomen and pelvis with contrast. HISTORY: Pain TECHNIQUE: Axial CT images were obtained of the abdomen and pelvis following administration of 100 mL of Isovue-370 in the left antecubital fossa without complication. Coronal and sagittal reconstructio ns obtained. FINDINGS: The lung bases are clear, no pleural effusion. The liver is enlarged and heterogeneous in density with likely areas of focal fatty sparing. Cholecys tectomy. The spleen, adrenal glands, and pancreas appear grossly normal. No bulky retroperitoneal lym phadenopathy or abdominal ascites. The kidneys enhance and function symmetrically without evidence of obstructive uropathy. The large and small bowel are normal in caliber without evidence of obstruction. No focal pericolonic inflammation or stranding. The appendix appears normal. The urinary bladder appears normal. Tubal li gation clips are present. There is a tiny right ovarian cyst. No significant free pelvic fluid. Grade 1 anterolisthesis of L5 on S1 with chronic bilateral spondylolysis. IMPRESSION: 1. Hypoechoic heterogeneous liver likely secondary to fatty infiltration. However given the degree of hepatomegaly and the decreased attenuation steatohepatitis should be considered.
[2017-07-11] MEDS ORDERED: Potassium Chloride 20 MEQ Tab.ER PO ONE (14:37)
[2017-07-11] MEDS ORDERED: Iopamidol 755 MG/ML 500 ML Multipack Bottle IVPUSH STA (14:56)
[2017-07-11] MEDS ORDERED: Sodium Chloride 0.9% 1,000 ML IV ONE (18:32)
--- NOTE | 2017-07-11 18:41 | PCM.HP ---
H&P History of Present Illness - History of Present Illness Initial Comments - Free Text/Narative: Patient is a 31 yo female with pmh of recurrent pancreatitis and alcohol abuse. She was last in rehab several months ago but quickly went back to drinking around 750 ml of liqour a day. She presented to the ED today with request for help to quit alcohol. She reports 8/10 epigastric abdominal pain. She denies any blood in her stool, nausea or vomiting. Her last drink was 24 hours ago. She reports she might have had several seizures last night as she describes feeling "out of it." These episodes were unwitnessed. CT scan of abdomen performed in ED reported hepatomegaly. generalized Pain Score (Numeric/FACES): 9 - Related Data Allergies/Adverse Reactions: Allergies Allergy/AdvReac Type Severity Reaction Status Date / Time No Known Allergies Allergy Verified 07/11/17 12:22 Home Medications: Home Meds . 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: Musculoskeletal History: Reports: Arthritis Other Musculoskeletal History: 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 Neurological History: Reports: Concussion, Seizure Other Neuro History: Alcohol withdrawal related siezures Psychiatric History: Reports: Addiction, Anxiety, Depression, Panic Attack Other Psychiatric History: ETOH abuse Endocrine/Metabolic History: Reports: None Hematologic History: Reports: None Immunologic History: Reports: None Oncologic (Cancer) History: Reports: None Dermatologic History: Reports: None - Infectious Disease History Infectious Disease History: Reports: Chicken Pox - Past Surgical History Head Surgeries/Procedures: Reports: None HEENT Surgical History: Reports: None Cardiovascular Surgical History: Reports: None Respiratory Surgical History: Reports: None GI Surgical History: Reports: Cholecystectomy, Hernia, Abdominal Female Surgical History: Reports: D&C, Tubal Ligation Endocrine Surgical History: Reports: None Neurological Surgical History: Reports: None Musculoskeletal Surgical History: Reports: None Dermatological Surgical History: Reports: None Social & Family History - Family History Family Medical History: Noncontributory - Tobacco Use Smoking Status *Q: Current Every Day Smoker Years of Tobacco use: 15 Packs/Tins Daily: 0.5 Second Hand Smoke Exposure: No - Caffeine Use Caffeine Use: Reports: None - Alcohol Use Days Per Week of Alcohol Use: 7 Number of Drinks Per Day: 4 Total Drinks Per Week: 28 Date of Last Drink: 07/11/17 Time of Last Drink: 20:30 - Recreational Drug Use Recreational Drug Use: No H&P Review of Systems - Review of Systems: Review Of Systems: ROS reveals no pertinent complaints other than HPI. Exam - Exam Exam: See Below - Vital Signs Vital Signs: Last Vital Signs Temp 36.6 C 07/11/17 12:19 Pulse 78 07/11/17 17:01 Resp 18 07/11/17 17:01 BP 114/74 07/11/17 17:01 Pulse Ox 98 07/11/17 17:01 Weight: 50.6 kg - Exam General: Alert, Oriented, 4 HEENT: Mucosa Moist & [place] Lungs: Clear to Auscultation, Normal Respiratory Effort Cardiovascular: Regular Rate, Regular Rhythm GI/Abdominal Exam: Soft, Tender (periumbilical). No: Guarding, Rigid, Rebound Extremities: Normal Range of Motion, Non-Tender, No Pedal Edema - Patient Data Result Diagrams: 07/11/17 12:51 07/11/17 12:51 *Q Meaningful Use (ADM) - VTE *Q VTE Criteria *Q: - Stroke *Q Stroke Criteria *Q: - AMI *Q AMI Criteria *Q: Problem List Initiated/Reviewed/Updated: Yes Orders Last 24hrs: Active Orders 24 hr Category Date Time Status NPO Now [Nothing per Oral Now Diet] [DIET] Diet 07/12/17 Breakfast Ordered Regular Diet [DIET] Diet 07/11/17 Dinner Active Folic Acid Med 07/12/17 09:00 Ordered 1 mg SUBCUT DAILY LORazepam [Ativan] Med 07/11/17 18:33 Ordered See Protocol IVPUSH Q4H PRN Morphine Med 07/11/17 18:33 Ordered 2 mg IVPUSH Q2H PRN Sodium Chloride 0.9% [Normal Saline] 1,000 ml Med 07/11/17 18:32 Ordered IV .Bolus Sodium Chloride 0.9% [Normal Saline] 1,000 ml Med 07/11/17 18:45 Ordered IV ASDIRECTED Thiamine [Vitamin B-1] Med 07/12/17 09:00 Ordered 100 mg IV DAILY Medication Orders Multivitamins/Minerals 10 ml/Thiamine HCl 100 mg/ Folic Acid 1 mg/ Sodium Chloride 1,011.2 mls @ 250 drops/hr IV ONETIME ONE Stop: 07/14/17 01:19 Last Admin: 07/11/17 13:32 Dose: 250 drops/hr Sodium Chloride (Normal Saline) 1,000 mls @ 1,000 mls/hr IV .Bolus ONE Stop: 07/11/17 19:31 Sodium Chloride (Normal Saline) 1,000 mls @ 200 mls/hr IV ASDIRECTED KATIE Sodium Chloride (Saline Flush) 10 ml FLUSH ASDIRECTED PRN PRN Reason: Keep Vein Open Sodium Chloride (Saline Flush) 2.5 ml FLUSH ASDIRECTED PRN PRN Reason: Keep Vein Open Assessment/Plan Comment:: 31 yo female who present with request for alcohol detox Alcoholic pancreatitis/gastritis. Will keep NPO, IV fluids, prn pain medications, and PPI Alcohol withdrawal: CIWA protocol, ativan prn, thiamin and folic acid
[2017-07-11] MEDS ORDERED: Ondansetron 4 MG/2 ML SDV IVPUSH PRN (18:42)
[2017-07-11] MEDS ORDERED: Sodium Chloride 0.9% 1,000 ML IV SCH (18:45)
[2017-07-11] MEDS ORDERED: Magnesium Sulfate/Water 4 GM in Premix Bag 1 BAG IV ONE (18:58)
[2017-07-11] MEDS: Famotidine 20 MG/2 ML SDV IVPUSH SCH (19:00)
[2017-07-11] MEDS ORDERED: Sodium Chloride 0.9% with KCl 1,000 ML IV SCH (19:00)
[2017-07-11] MEDS: Morphine 2 MG/ML Syringe IVPUSH PRN (20:03)
[2017-07-12] MEDS: Morphine 2 MG/ML Syringe IVPUSH PRN (02:50)
[2017-07-12] MEDS: Sodium Chloride 0.9% 1,000 ML IV SCH ×4 (02:51→23:06)
[2017-07-12 05:48] LABS: CHLORIDE,CL 103 mmol/L (98-110); SODIUM,NA 136 mmol/L (136-146)
--- NOTE | 2017-07-12 07:11 | PCM.PN ---
- Review of Systems Systems Review Comment:: abdominal pain improving. - Patient Data Vitals - Most Recent: Last Vital Signs Temp 37.2 C 07/12/17 04:00 Pulse 78 07/11/17 17:01 Resp 14 07/12/17 05:00 BP 98/67 07/12/17 05:00 Pulse Ox 97 07/12/17 05:00 Weight - Most Recent: 53 kg I&O - Last 24 Hours: Intake & Output 07/11/17 07/12/17 07/12/17 22:59 06:59 14:59 Intake Total 3100 1491 Output Total 700 Balance 3100 791 Lab Results Last 24 Hours: Laboratory Results - last 24 hr 07/11/17 07/11/17 07/12/17 Range/Units 18:55 18:55 04:55 WBC 2.08 L (4.0-11.0) K/uL RBC 2.73 L (4.30-5.90) M/uL Hgb 8.0 L (12.0-16.0) g/dL Hct 25.0 L (36.0-46.0) % MCV 91.6 (80.0-98.0) fL MCH 29.3 (27.0-32.0) pg MCHC 32.0 (31.0-37.0) g/dL RDW Std Deviation 55.8 (28.0-62.0) fl RDW Coeff of Diane 17 H (11.0-15.0) % Plt Count 54 L (150-400) K/uL MPV 10.80 (7.40-12.00) fL Neut % (Auto) 51.3 (48.0-80.0) % Lymph % (Auto) 38.5 (16.0-40.0) % [place] % (Auto) 6.3 (0.0-15.0) % Eos % (Auto) 3.4 (0.0-7.0) % Baso % (Auto) 0.5 (0.0-1.5) % Neut # (Auto) 1.1 L (1.4-5.7) K/uL Lymph # (Auto) 0.8 (0.6-2.4) K/uL [place] # (Auto) 0.1 (0.0-0.8) K/uL Eos # (Auto) 0.1 (0.0-0.7) K/uL Baso # (Auto) 0.0 (0.0-0.1) K/uL Nucleated RBC % 0.0 /100WBC Nucleated RBCs # 0 K/uL INR 1.19 H (0.86-1.11) Sodium (136-146) mmol/L Potassium (3.5-5.1) mmol/L Chloride (98-110) mmol/L Carbon Dioxide (21-31) mmol/L BUN (6.0-23.0) mg/dL Creatinine (0.6-1.5) mg/dL Est Cr Clr Drug Dosing mL/min Estimated GFR (MDRD) ml/min Glucose (60-110) mg/dL Calcium (8.8-10.8) mg/dL Phosphorus 2.4 (2.4-4.7) mg/dL Magnesium (1.5-2.3) mEq/L Total Bilirubin (0.1-1.5) mg/dL AST (5-40) IU/L ALT (8-54) IU/L Alkaline Phosphatase (40-150) Total Protein (6.0-8.0) g/dL Albumin (3.5-5.0) g/dL Globulin (2.0-3.5) g/dL Albumin/Globulin Ratio (1.3-2.8) 07/12/17 Range/Units 04:55 WBC (4.0-11.0) K/uL RBC (4.30-5.90) M/uL Hgb (12.0-16.0) g/dL Hct (36.0-46.0) % MCV (80.0-98.0) fL MCH (27.0-32.0) pg MCHC (31.0-37.0) g/dL RDW Std Deviation (28.0-62.0) fl RDW Coeff of Diane (11.0-15.0) % Plt Count (150-400) K/uL MPV (7.40-12.00) fL Neut % (Auto) (48.0-80.0) % Lymph % (Auto) (16.0-40.0) % [place] % (Auto) (0.0-15.0) % Eos % (Auto) (0.0-7.0) % Baso % (Auto) (0.0-1.5) % Neut # (Auto) (1.4-5.7) K/uL Lymph # (Auto) (0.6-2.4) K/uL [place] # (Auto) (0.0-0.8) K/uL Eos # (Auto) (0.0-0.7) K/uL Baso # (Auto) (0.0-0.1) K/uL Nucleated RBC % /100WBC Nucleated RBCs # K/uL INR (0.86-1.11) Sodium 136 (136-146) mmol/L Potassium 4.2 (3.5-5.1) mmol/L Chloride 103 (98-110) mmol/L Carbon Dioxide 22 (21-31) mmol/L BUN 6 (6.0-23.0) mg/dL Creatinine 0.5 L (0.6-1.5) mg/dL Est Cr Clr Drug Dosing 127.76 mL/min Estimated GFR (MDRD) > 60.0 ml/min Glucose 72 (60-110) mg/dL Calcium 8.3 L (8.8-10.8) mg/dL Phosphorus 1.6 L (2.4-4.7) mg/dL Magnesium 1.7 (1.5-2.3) mEq/L Total Bilirubin 1.2 (0.1-1.5) mg/dL AST 134 H (5-40) IU/L ALT 64 H (8-54) IU/L Alkaline Phosphatase 112 (40-150) Total Protein 6.2 (6.0-8.0) g/dL Albumin 3.1 L (3.5-5.0) g/dL Globulin 3.1 (2.0-3.5) g/dL Albumin/Globulin Ratio 1.0 L (1.3-2.8) Med Orders - Current: Current Medications Famotidine (Pepcid) 20 mg IVPUSH DAILY [facility] Last Admin: 07/11/17 19:00 Dose: 20 mg Folic Acid (Folic Acid) 1 mg SUBCUT DAILY [facility] Multivitamins/Minerals 10 ml/Thiamine HCl 100 mg/ Folic Acid 1 mg/ Sodium Chloride 1,011.2 mls @ 250 drops/hr IV ONETIME ONE Stop: 07/14/17 01:19 Last Admin: 07/11/17 13:32 Dose: 250 drops/hr Sodium Chloride (Normal Saline) 1,000 mls @ 150 mls/hr IV ASDIRECTED [facility] Last Admin: 07/12/17 02:51 Dose: 150 mls/hr Lorazepam (Ativan) 0 mg IVPUSH Q4H PRN; Protocol PRN Reason: Agitation Morphine Sulfate (Morphine) 2 mg IVPUSH Q2H PRN PRN Reason: Pain Last Admin: 07/12/17 02:50 Dose: 2 mg Ondansetron HCl (Zofran) 4 mg IVPUSH Q4H PRN PRN Reason: nasuea Sodium Chloride (Saline Flush) 10 ml FLUSH ASDIRECTED PRN PRN Reason: Keep Vein Open Sodium Chloride (Saline Flush) 2.5 ml FLUSH ASDIRECTED PRN PRN Reason: Keep Vein Open Thiamine HCl (Vitamin B-1) 100 mg IV DAILY [facility] Discontinued Medications Sodium Chloride (Normal Saline) 1,000 mls @ 1,000 mls/hr IV .Bolus ONE Stop: 07/11/17 19:31 Last Admin: 07/11/17 18:53 Dose: 1,000 mls/hr Sodium Chloride (Normal Saline) 1,000 mls @ 200 mls/hr IV ASDIRECTED [facility] Potassium Chloride/Sodium Chloride (Normal Saline With 40 Meq Kcl) 1,000 mls @ 150 mls/hr IV ASDIRECTED [facility]ATIE Stop: 07/12/17 01:39 Last Admin: 07/11/17 20:02 Dose: 150 mls/hr Magnesium Sulfate 4 gm/ Premix 100 mls @ 50 mls/hr IV ONETIME ONE Stop: 07/11/17 20:57 Last Admin: 07/11/17 20:05 Dose: 50 mls/hr Iopamidol (Isovue Multipack-370 (76%)) 100 ml IVPUSH ONETIME STA Stop: 07/11/17 14:57 Last Admin: 07/11/17 14:56 Dose: 100 ml Potassium Chloride (Klor-Con M20) 40 meq PO ONETIME ONE Stop: 07/11/17 14:38 Last Admin: 07/11/17 15:19 Dose: 40 meq - Exam General: Alert, Oriented HEENT: Mucous Membr. Moist/[employer] Neck: Supple Lungs: Clear to Auscultation, Normal Respiratory Effort Cardiovascular: Regular Rate, Regular Rhythm GI/Abdominal Exam: Normal Bowel Sounds, Soft, Non-Tender, No Distention Extremities: Normal Range of Motion, No Pedal Edema Skin: Warm, Dry, Intact Neurological: No New Focal Deficit - Problem List Review Problem List Initiated/Reviewed/Updated: Yes - My Orders Last 24 Hours: My Active Orders 07/11/17 18:33 LORazepam [Ativan] See Protocol IVPUSH Q4H PRN Morphine 2 mg IVPUSH Q2H PRN 07/11/17 18:38 Hemoccult [Fecal Occult Blood Collection] [RC] ASDIRECTED Hemoccult [OCCULT BLOOD DIAGNOSTIC] [OP] Routine 07/11/17 18:42 Intake and Output [RC] Q12H Oxygen Therapy [RC] PRN Up ad Linda [RC] ASDIRECTED Vital Signs [RC] Q1H Ondansetron [Zofran] 4 mg IVPUSH Q4H PRN Sequential Compression Device [OM.PC] Per Unit Routine Resuscitation Status Routine 07/11/17 18:43 Antiembolic Devices [RC] Q12H 07/11/17 18:45 Famotidine [Pepcid] 20 mg IVPUSH DAILY 07/12/17 07:15 Phosphorus #1 [Neutra-Phos] 250 mg PO QID 07/12/17 09:00 Folic Acid 1 mg SUBCUT DAILY Thiamine [Vitamin B-1] 100 mg IV DAILY 07/12/17 Breakfast NPO Now [Nothing per Oral Now Diet] [DIET] 07/12/17 Lunch Clear Liquid Diet [DIET] 07/13/17 05:11 CBC WITH AUTO DIFF [HEME] AM COMPREHENSIVE METABOLIC PN,CMP [CHEM] AM MAGNESIUM [CHEM] AM PHOSPHORUS [CHEM] AM 07/14/17 05:11 CBC WITH AUTO DIFF [HEME] AM COMPREHENSIVE METABOLIC PN,CMP [CHEM] AM MAGNESIUM [CHEM] AM PHOSPHORUS [CHEM] AM 07/15/17 05:11 CBC WITH AUTO DIFF [HEME] AM COMPREHENSIVE METABOLIC PN,CMP [CHEM] AM MAGNESIUM [CHEM] AM PHOSPHORUS [CHEM] AM 07/16/17 05:11 MAGNESIUM [CHEM] AM PHOSPHORUS [CHEM] AM 07/17/17 05:11 MAGNESIUM [CHEM] AM PHOSPHORUS [CHEM] AM - Plan Plan:: 31 yo female who present with request for alcohol detox Alcoholic pancreatitis/gastritis. abdominal pain improving, will advance diet to clear liquids Alcohol withdrawal: CIWA scores have been low, not need any ativan last night, thiamin and folic acid hypophosphatemia: replacing
[2017-07-12] MEDS: Folic Acid 50 MG/10 ML MDV SUBCUT SCH (08:59)
[2017-07-12] MEDS ORDERED: Thiamine 200 MG/2 ML MDV IV SCH (09:00)
[2017-07-12] MEDS: Famotidine 20 MG/2 ML SDV IVPUSH SCH (09:00)
[2017-07-12] MEDS: Phosphorus #1 250 MG Tab PO SCH ×3 (09:00→18:04)
[2017-07-12] MEDS: LORazepam 1 MG Tab PO PRN ×2 (09:10→12:35)
[2017-07-12] MEDS: Thiamine 100 MG in Sodium Chloride 0.9% 50 ML IV SCH (09:14)
[2017-07-12] MEDS: LORazepam 2 MG/ML MDV IVPUSH PRN ×3 (14:31→17:56)
[2017-07-12] MEDS ORDERED: LORazepam 2 MG/ML MDV IVPUSH ONE (15:06)
[2017-07-13] MEDS: Phosphorus #1 250 MG Tab PO SCH (01:37)
[2017-07-13] MEDS: LORazepam 1 MG Tab PO PRN ×3 (02:50→22:09)
[2017-07-13 05:31] LABS: CHLORIDE,CL 107 mmol/L (98-110); SODIUM,NA 141 mmol/L (136-146)
[2017-07-13] MEDS: Sodium Chloride 0.9% 1,000 ML IV SCH ×2 (06:03→19:16)
[2017-07-13] MEDS ORDERED: Potassium Chloride 40 MEQ in Sodium Chloride 0.9% 480 ML IV ONE (06:52)
[2017-07-13] MEDS ORDERED: Magnesium Sulfate/Water 2 GM in Premix Bag 1 BAG IV ONE (06:53)
[2017-07-13] MEDS ORDERED: Magnesium Sulfate/Water 4 GM in Premix Bag 1 BAG IV ONE (07:25)
[2017-07-13] MEDS ORDERED: Sodium Chloride 0.9% with KCl 1,000 ML IV SCH (07:30)
[2017-07-13] MEDS: Famotidine 20 MG/2 ML SDV IVPUSH SCH (08:22)
[2017-07-13] MEDS: Folic Acid 50 MG/10 ML MDV SUBCUT SCH (08:23)
[2017-07-13] MEDS: Thiamine 100 MG in Sodium Chloride 0.9% 50 ML IV SCH (10:54)
--- NOTE | 2017-07-13 11:11 | PCM.PN ---
- Review of Systems Systems Review Comment:: last night had hallucinations and became agitated and confused, alert and orientated this morning. - Patient Data Vitals - Most Recent: Last Vital Signs Temp 36.2 C 07/13/17 09:00 Pulse 66 07/13/17 07:00 Resp 19 07/13/17 10:00 BP 102/72 07/13/17 10:00 Pulse Ox 97 07/13/17 10:00 Weight - Most Recent: 51.5 kg I&O - Last 24 Hours: Intake & Output 07/12/17 07/13/17 07/13/17 22:59 06:59 14:59 Intake Total 1631 1150 1100 Output Total 800 2650 Balance 831 -1500 1100 Lab Results Last 24 Hours: Laboratory Results - last 24 hr 07/13/17 07/13/17 Range/Units 04:08 04:08 WBC 2.14 L (4.0-11.0) K/uL RBC 2.83 L (4.30-5.90) M/uL Hgb 8.2 L (12.0-16.0) g/dL Hct 26.1 L (36.0-46.0) % MCV 92.2 (80.0-98.0) fL MCH 29.0 (27.0-32.0) pg MCHC 31.4 (31.0-37.0) g/dL RDW Std Deviation 55.5 (28.0-62.0) fl RDW Coeff of Diane 16 H (11.0-15.0) % Plt Count 54 L (150-400) K/uL MPV 11.30 (7.40-12.00) fL Neut % (Auto) 51.0 (48.0-80.0) % Lymph % (Auto) 33.6 (16.0-40.0) % [place] % (Auto) 9.8 (0.0-15.0) % Eos % (Auto) 4.7 (0.0-7.0) % Baso % (Auto) 0.9 (0.0-1.5) % Neut # (Auto) 1.1 L (1.4-5.7) K/uL Lymph # (Auto) 0.7 (0.6-2.4) K/uL [place] # (Auto) 0.2 (0.0-0.8) K/uL Eos # (Auto) 0.1 (0.0-0.7) K/uL Baso # (Auto) 0.0 (0.0-0.1) K/uL Nucleated RBC % 0.0 /100WBC Nucleated RBCs # 0 K/uL Sodium 141 (136-146) mmol/L Potassium 3.2 L (3.5-5.1) mmol/L Chloride 107 (98-110) mmol/L Carbon Dioxide 24 (21-31) mmol/L BUN 3 L (6.0-23.0) mg/dL Creatinine 0.5 L (0.6-1.5) mg/dL Est Cr Clr Drug Dosing 116.03 mL/min Estimated GFR (MDRD) > 60.0 ml/min Glucose 88 (60-110) mg/dL Calcium 8.6 L (8.8-10.8) mg/dL Phosphorus 3.2 (2.4-4.7) mg/dL Magnesium 1.3 L (1.5-2.3) mEq/L Total Bilirubin 0.7 (0.1-1.5) mg/dL AST 140 H (5-40) IU/L ALT 70 H (8-54) IU/L Alkaline Phosphatase 111 (40-150) Total Protein 6.3 (6.0-8.0) g/dL Albumin 3.1 L (3.5-5.0) g/dL Globulin 3.2 (2.0-3.5) g/dL Albumin/Globulin Ratio 1.0 L (1.3-2.8) Marvin Results Last 24 Hours: Microbiology 07/12/17 10:45 Stool Occult Blood (MARVIN) - Final Stool / Feces NEGATIVE OCCULT BLOOD Med Orders - Current: Current Medications Famotidine (Pepcid) 20 mg IVPUSH DAILY [facility] Last Admin: 07/13/17 08:22 Dose: 20 mg Folic Acid (Folic Acid) 1 mg SUBCUT DAILY [facility] Last Admin: 07/13/17 08:23 Dose: 1 mg Multivitamins/Minerals 10 ml/Thiamine HCl 100 mg/ Folic Acid 1 mg/ Sodium Chloride 1,011.2 mls @ 250 drops/hr IV ONETIME ONE Stop: 07/14/17 01:19 Last Admin: 07/11/17 13:32 Dose: 250 drops/hr Sodium Chloride (Normal Saline) 1,000 mls @ 150 mls/hr IV ASDIRECTED [facility] Last Admin: 07/13/17 06:03 Dose: 150 mls/hr Thiamine HCl 100 mg/ Sodium (Chloride) 51 mls @ 204 mls/hr IV DAILY [facility] Last Admin: 07/13/17 10:54 Dose: 204 mls/hr Potassium Chloride/Sodium Chloride (Normal Saline With 40 Meq Kcl) 1,000 mls @ 150 mls/hr IV ASDIRECTED [facility] Stop: 07/13/17 14:09 Last Admin: 07/13/17 08:25 Dose: 150 mls/hr Lorazepam (Ativan) 0 mg IVPUSH Q4H PRN; Protocol PRN Reason: Agitation Last Admin: 07/12/17 17:56 Dose: 2 mg Lorazepam (Ativan) 1 - 2 mg PO ASDIRECTED PRN PRN Reason: CIWAA SCORE Last Admin: 07/13/17 08:49 Dose: 1 mg Ondansetron HCl (Zofran) 4 mg IVPUSH Q4H PRN PRN Reason: nasuea Sodium Chloride (Saline Flush) 10 ml FLUSH ASDIRECTED PRN PRN Reason: Keep Vein Open Sodium Chloride (Saline Flush) 2.5 ml FLUSH ASDIRECTED PRN PRN Reason: Keep Vein Open Discontinued Medications Diazepam (Valium) 5 mg IVPUSH ONETIME ONE Stop: 07/12/17 15:12 Last Admin: 07/12/17 15:22 Dose: 5 mg Sodium Chloride (Normal Saline) 1,000 mls @ 1,000 mls/hr IV .Bolus ONE Stop: 07/11/17 19:31 Last Admin: 07/11/17 18:53 Dose: 1,000 mls/hr Sodium Chloride (Normal Saline) 1,000 mls @ 200 mls/hr IV ASDIRECTED [facility] Potassium Chloride/Sodium Chloride (Normal Saline With 40 Meq Kcl) 1,000 mls @ 150 mls/hr IV ASDIRECTED [facility] Stop: 07/12/17 01:39 Last Admin: 07/11/17 20:02 Dose: 150 mls/hr Magnesium Sulfate 4 gm/ Premix 100 mls @ 50 mls/hr IV ONETIME ONE Stop: 07/11/17 20:57 Last Admin: 07/11/17 20:05 Dose: 50 mls/hr Potassium Chloride 40 meq/ (Sodium Chloride) 500 mls @ 125 mls/hr IV ONETIME ONE Stop: 07/13/17 10:51 Last Admin: 07/13/17 08:16 Dose: Not Given Magnesium Sulfate 2 gm/ Premix 50 mls @ 50 mls/hr IV ONETIME ONE Stop: 07/13/17 07:52 Last Admin: 07/13/17 08:14 Dose: Not Given Magnesium Sulfate 4 gm/ Premix 100 mls @ 50 mls/hr IV ONETIME ONE Stop: 07/13/17 09:24 Last Admin: 07/13/17 08:22 Dose: 50 mls/hr Iopamidol (Isovue Multipack-370 (76%)) 100 ml IVPUSH ONETIME STA Stop: 07/11/17 14:57 Last Admin: 07/11/17 14:56 Dose: 100 ml Lorazepam (Ativan) 1 mg IVPUSH ONETIME ONE Stop: 07/12/17 15:07 Last Admin: 07/12/17 15:21 Dose: 1 mg Morphine Sulfate (Morphine) 2 mg IVPUSH Q2H PRN PRN Reason: Pain Last Admin: 07/12/17 02:50 Dose: 2 mg Potassium Chloride (Klor-Con M20) 40 meq PO ONETIME ONE Stop: 07/11/17 14:38 Last Admin: 07/11/17 15:19 Dose: 40 meq Sodium Phosphate (Neutra-Phos) 250 mg PO QID [facility]ATIE Stop: 07/13/17 00:01 Last Admin: 07/13/17 01:37 Dose: 250 mg - Exam General: Alert, Oriented Lungs: Clear to Auscultation, Normal Respiratory Effort Cardiovascular: Regular Rate, Regular Rhythm GI/Abdominal Exam: Normal Bowel Sounds, Soft, Non-Tender, No Distention Extremities: Normal Inspection, Non-Tender, No Pedal Edema Skin: Warm, Dry, Intact - Problem List Review Problem List Initiated/Reviewed/Updated: Yes - My Orders Last 24 Hours: My Active Orders 07/12/17 15:53 Transfer Patient (Change bed) [ADT] Routine 07/12/17 Dinner Regular Diet [DIET] 07/13/17 07:30 Sodium Chloride 0.9% with KCl [Normal Saline with 40 mEq KCl] 1,000 ml IV ASDIRECTED 07/13/17 07:35 UA W/MICROSCOPIC [URIN] Routine 07/14/17 05:11 CBC WITH AUTO DIFF [HEME] AM COMPREHENSIVE METABOLIC PN,CMP [CHEM] AM MAGNESIUM [CHEM] AM PHOSPHORUS [CHEM] AM 07/15/17 05:11 CBC WITH AUTO DIFF [HEME] AM COMPREHENSIVE METABOLIC PN,CMP [CHEM] AM MAGNESIUM [CHEM] AM PHOSPHORUS [CHEM] AM 07/16/17 05:11 MAGNESIUM [CHEM] AM PHOSPHORUS [CHEM] AM 07/17/17 05:11 MAGNESIUM [CHEM] AM PHOSPHORUS [CHEM] AM - Plan Plan:: 31 yo female who present with request for alcohol detox Alcoholic pancreatitis/gastritis. abdominal pain resolved, tolerating diet Alcohol withdrawal: CIWA high last night, requred 5mg of ativan and 5mg valium last night. Last does of ativan at 2 AM. will continue thiamin and folic acid hypokalemia/hypomagnesia: replacing
[2017-07-14] MEDS: Sodium Chloride 0.9% 1,000 ML IV SCH (02:06)
[2017-07-14 05:15] LABS: CHLORIDE,CL 107 mmol/L (98-110); SODIUM,NA 138 mmol/L (136-146)
[2017-07-14] MEDS ORDERED: Magnesium Sulfate/Water 2 GM in Premix Bag 1 BAG IV ONE (07:20)
--- NOTE | 2017-07-14 07:58 | PCM.DCSUM1 ---
Discharge Summary - Discharge Data Discharge Date: 07/14/17 Discharge Disposition: Home, Self-Care 01 Condition: Good - Patient Summary/Data Hospital Course: Hospital Diagnosis: Acute alcohol withdrawal Alcohol abuse Mild Pancreatitis Hypokalemia, Hypomagnesia, Hypophosphatemia Alcoholic fatty liver disease Hospital Course: Patient is a 31 yo female with pmh of recurrent pancreatitis and alcohol abuse. She was last in rehab several months ago but quickly went back to drinking around 750 ml of liqour a day. She presented to the ED today with request for help to quit alcohol. She also reported 8/10 epigastric abdominal pain. Laboratory work up was significant for a potassium of 2.8, magnesium of 1.0, total bilirubin of 2.1, AST of 180, ALT of 88, Alk phos of 150 , and Lipase of 277. CT scan of abdomen performed in ED reported hepatomegaly. She was treated with IV fluids and made NPO during her first day due to concerns of alcoholic pancreatitis. Her abdominal pain resolved and she was advance to a regular diet. She received potassium, mangnium and phosphate replacement for electrolyte abnormalities. She was given thiamin and folic acid. She was placed on CIWA protocol with prn ativan. Her second night of the hospital she did have hallucinations which resolved the following day. For the past 24 hours her CIWA scores have been less than 8 and patient is requesting discharge. Patient was discharged home to follow up with her PCP next week. - Patient Instructions Diet: Regular Diet as Tolerated Activity: As Tolerated - Discharge Plan Home Medications: Home Meds . [No Known Home Meds] 07/11/17 [History] Forms: ED Department Discharge Referrals: PCP,None [Primary Care Provider] - - Patient Data Vitals - Most Recent: Last Vital Signs Temp 36.8 C 07/14/17 04:00 Pulse 66 07/13/17 07:00 Resp 12 07/14/17 07:00 BP 105/75 07/14/17 07:00 Pulse Ox 96 07/14/17 07:00 Weight - Most Recent: 54.1 kg I&O - Last 24 hours: Intake & Output 07/13/17 07/14/17 07/14/17 22:59 06:59 14:59 Intake Total 1850 1958 Output Total 2400 1800 Balance -550 158 Lab Results - Last 24 hrs: Laboratory Results - last 24 hr 07/13/17 07/14/17 07/14/17 Range/Units 11:16 04:36 04:36 WBC 2.98 L (4.0-11.0) K/uL RBC 2.95 L (4.30-5.90) M/uL Hgb 8.8 L (12.0-16.0) g/dL Hct 27.6 L (36.0-46.0) % MCV 93.6 (80.0-98.0) fL MCH 29.8 (27.0-32.0) pg MCHC 31.9 (31.0-37.0) g/dL RDW Std Deviation 57.4 (28.0-62.0) fl RDW Coeff of Diane 17 H (11.0-15.0) % Plt Count 77 L (150-400) K/uL MPV 11.20 (7.40-12.00) fL Neut % (Auto) 49.3 (48.0-80.0) % Lymph % (Auto) 32.6 (16.0-40.0) % [place] % (Auto) 14.4 (0.0-15.0) % Eos % (Auto) 3.4 (0.0-7.0) % Baso % (Auto) 0.3 (0.0-1.5) % Neut # (Auto) 1.5 (1.4-5.7) K/uL Lymph # (Auto) 1.0 (0.6-2.4) K/uL [place] # (Auto) 0.4 (0.0-0.8) K/uL Eos # (Auto) 0.1 (0.0-0.7) K/uL Baso # (Auto) 0.0 (0.0-0.1) K/uL Nucleated RBC % 0.0 /100WBC Nucleated RBCs # 0 K/uL Sodium 138 (136-146) mmol/L Potassium 3.9 (3.5-5.1) mmol/L Chloride 107 (98-110) mmol/L Carbon Dioxide 25 (21-31) mmol/L BUN 8 (6.0-23.0) mg/dL Creatinine 0.5 L (0.6-1.5) mg/dL Est Cr Clr Drug Dosing 116.03 mL/min Estimated GFR (MDRD) > 60.0 ml/min Glucose 112 H (60-110) mg/dL Calcium 8.6 L (8.8-10.8) mg/dL Phosphorus 3.1 (2.4-4.7) mg/dL Magnesium 1.3 L (1.5-2.3) mEq/L Total Bilirubin 0.5 (0.1-1.5) mg/dL AST 115 H (5-40) IU/L ALT 70 H (8-54) IU/L Alkaline Phosphatase 124 (40-150) Total Protein 5.7 L (6.0-8.0) g/dL Albumin 3.0 L (3.5-5.0) g/dL Globulin 2.7 (2.0-3.5) g/dL Albumin/Globulin Ratio 1.1 L (1.3-2.8) Urine Color YELLOW Urine Appearance CLEAR Urine pH 7.0 (5.0-8.0) Ur Specific [place] 1.015 (1.001-1.035) Urine Protein NEGATIVE (NEGATIVE) mg/dL Urine Glucose (UA) NEGATIVE (NEGATIVE) mg/dL Urine Ketones NEGATIVE (NEGATIVE) mg/dL Urine Occult Blood NEGATIVE (NEGATIVE) Urine Nitrite NEGATIVE (NEGATIVE) Urine Bilirubin NEGATIVE (NEGATIVE) Urine Urobilinogen 1.0 (<2.0) EU/dL Ur Leukocyte Esterase NEGATIVE (NEGATIVE) Urine RBC 0-1 (0-2/HPF) Urine WBC 0-1 (0-5/HPF) Ur Epithelial Cells RARE (NONE-FEW) Urine Bacteria RARE (NEGATIVE) Med Orders - Current: Current Medications Famotidine (Pepcid) 20 mg IVPUSH DAILY [facility] Last Admin: 07/13/17 08:22 Dose: 20 mg Folic Acid (Folic Acid) 1 mg SUBCUT DAILY [facility] Last Admin: 07/13/17 08:23 Dose: 1 mg Sodium Chloride (Normal Saline) 1,000 mls @ 150 mls/hr IV ASDIRECTED [facility] Last Admin: 07/14/17 02:06 Dose: 150 mls/hr Thiamine HCl 100 mg/ Sodium (Chloride) 51 mls @ 204 mls/hr IV DAILY [facility] Last Admin: 07/13/17 10:54 Dose: 204 mls/hr Magnesium Sulfate 2 gm/ Premix 50 mls @ 50 mls/hr IV ONETIME ONE Stop: 07/14/17 08:19 Lorazepam (Ativan) 0 mg IVPUSH Q4H PRN; Protocol PRN Reason: Agitation Last Admin: 07/12/17 17:56 Dose: 2 mg Lorazepam (Ativan) 1 - 2 mg PO ASDIRECTED PRN PRN Reason: CIWAA SCORE Last Admin: 07/13/17 22:09 Dose: 1 mg Ondansetron HCl (Zofran) 4 mg IVPUSH Q4H PRN PRN Reason: nasuea Sodium Chloride (Saline Flush) 10 ml FLUSH ASDIRECTED PRN PRN Reason: Keep Vein Open Sodium Chloride (Saline Flush) 2.5 ml FLUSH ASDIRECTED PRN PRN Reason: Keep Vein Open Discontinued Medications Diazepam (Valium) 5 mg IVPUSH ONETIME ONE Stop: 07/12/17 15:12 Last Admin: 07/12/17 15:22 Dose: 5 mg Multivitamins/Minerals 10 ml/Thiamine HCl 100 mg/ Folic Acid 1 mg/ Sodium Chloride 1,011.2 mls @ 250 drops/hr IV ONETIME ONE Stop: 07/14/17 01:19 Last Admin: 07/11/17 13:32 Dose: 250 drops/hr Sodium Chloride (Normal Saline) 1,000 mls @ 1,000 mls/hr IV .Bolus ONE Stop: 07/11/17 19:31 Last Admin: 07/11/17 18:53 Dose: 1,000 mls/hr Sodium Chloride (Normal Saline) 1,000 mls @ 200 mls/hr IV ASDIRECTED [facility] Potassium Chloride/Sodium Chloride (Normal Saline With 40 Meq Kcl) 1,000 mls @ 150 mls/hr IV ASDIRECTED [facility] Stop: 07/12/17 01:39 Last Admin: 07/11/17 20:02 Dose: 150 mls/hr Magnesium Sulfate 4 gm/ Premix 100 mls @ 50 mls/hr IV ONETIME ONE Stop: 07/11/17 20:57 Last Admin: 07/11/17 20:05 Dose: 50 mls/hr Potassium Chloride 40 meq/ (Sodium Chloride) 500 mls @ 125 mls/hr IV ONETIME ONE Stop: 07/13/17 10:51 Last Admin: 07/13/17 08:16 Dose: Not Given Magnesium Sulfate 2 gm/ Premix 50 mls @ 50 mls/hr IV ONETIME ONE Stop: 07/13/17 07:52 Last Admin: 07/13/17 08:14 Dose: Not Given Potassium Chloride/Sodium Chloride (Normal Saline With 40 Meq Kcl) 1,000 mls @ 150 mls/hr IV ASDIRECTED [facility] Stop: 07/13/17 14:09 Last Admin: 07/13/17 08:25 Dose: 150 mls/hr Magnesium Sulfate 4 gm/ Premix 100 mls @ 50 mls/hr IV ONETIME ONE Stop: 07/13/17 09:24 Last Admin: 07/13/17 08:22 Dose: 50 mls/hr Iopamidol (Isovue Multipack-370 (76%)) 100 ml IVPUSH ONETIME STA Stop: 07/11/17 14:57 Last Admin: 07/11/17 14:56 Dose: 100 ml Lorazepam (Ativan) 1 mg IVPUSH ONETIME ONE Stop: 07/12/17 15:07 Last Admin: 07/12/17 15:21 Dose: 1 mg Morphine Sulfate (Morphine) 2 mg IVPUSH Q2H PRN PRN Reason: Pain Last Admin: 07/12/17 02:50 Dose: 2 mg Potassium Chloride (Klor-Con M20) 40 meq PO ONETIME ONE Stop: 07/11/17 14:38 Last Admin: 07/11/17 15:19 Dose: 40 meq Sodium Phosphate (Neutra-Phos) 250 mg PO QID KATIE Stop: 07/13/17 00:01 Last Admin: 07/13/17 01:37 Dose: 250 mg *Q Meaningful Use (DIS) - VTE *Q VTE Criteria *Q: - Stroke *Q Stroke Criteria *Q: - AMI *Q AMI Criteria *Q:
[2017-07-14] MEDS: Famotidine 20 MG/2 ML SDV IVPUSH SCH (08:04)
[2017-07-14] MEDS: Folic Acid 50 MG/10 ML MDV SUBCUT SCH (08:04)
[2017-07-14 09:23] VITALS: BP 97/68
[2017-07-14] MEDS: Thiamine 100 MG in Sodium Chloride 0.9% 50 ML IV SCH (09:23)
== END 2017-07-14 09:55 | disposition home or self-care (01) | DRG 775 ==
LOC: MW.ED 11:49 → MW.ICU 14:44 → UNDOADMIN 16:18 → MW.MS 07-12 11:48 → MW.ICU 07-12 11:48 → MW.MS 07-12 17:32 → MW.ICU 07-12 17:32
PROVIDERS: ADMIT Internal Medicine; ATTEND Internal Medicine
DX: F10.239 Alcohol dependence with withdrawal, unspecified (principal); K85.90 Acute pancreatitis without necrosis or infection, unspecified; E87.6 Hypokalemia; E83.42 Hypomagnesemia; E83.39 Other disorders of phosphorus metabolism; K70.0 Alcoholic fatty liver; F41.8 Other specified anxiety disorders; F17.200 Nicotine dependence, unspecified, uncomplicated
CPT/HCPCS: 36415; 71020; 71020-26; 74177; 74177-26; 80053; 80305; 81001; 81025; 82272; 83605; 83690; 83735; 84100; 84443; 84484; 84703; 85025; 85610; 87086; 93005; 96365; 96366; 99283; 99285-25; A9270-GY; G0480; J2060; J2270; J3360; J3411; J3475; J3480; J7040; J7050; Q9967

== ENCOUNTER 2017-07-25 05:21 | Emergency (ER) | payer BC ==
[2017-07-25 05:33] VITALS: BP 139/90
--- NOTE | 2017-07-25 05:34 | EDM.PDOC ---
ED HPI GENERAL MEDICAL PROBLEM - General Chief Complaint: Drug or Alcohol Abuse Stated Complaint: ILL Time Seen by Provider: 07/25/17 05:31 - History of Present Illness INITIAL COMMENTS - FREE TEXT/NARRATIVE: HISTORY AND PHYSICAL: History of present illness: Patient 31-year-old female with a history of alcohol dependence/abuse who presents with a concern of requesting referral for alcohol dependence. Patient denies chest pain shortness of breath or any other constitutional symptoms Review of systems: As per history of present illness and below otherwise all systems reviewed and negative. Past medical history: As per history of present illness and as reviewed below otherwise noncontributory. Surgical history: As per history of present illness and as reviewed below otherwise noncontributory. Social history: No reported history of drug or alcohol abuse. Family history: As per history of present illness and as reviewed below otherwise noncontributory. Physical exam: HEENT: Atraumatic, normocephalic, pupils reactive, negative for conjunctival pallor or scleral icterus, mucous membranes moist, throat clear, neck supple, nontender, trachea midline. Lungs: Clear to auscultation, breath sounds equal bilaterally, chest nontender. Heart: S1S2, regular, negative for clicks, rubs, or JVD. Abdomen: Soft, nondistended, nontender. Negative for masses or hepatosplenomegaly. Negative for costovertebral tenderness. Pelvis: Stable nontender. Genitourinary: Deferred. Rectal: Deferred. Extremities: Atraumatic, negative for cords or calf pain. Neurovascular unremarkable. Neuro: Awake, alert, oriented. Cranial nerves II through XII unremarkable. Cerebellum unremarkable. Motor and sensory unremarkable throughout. Exam nonfocal. Diagnostics: Deferred Therapeutics: None Impression: #1 alcohol abuse Definitive disposition and diagnosis as appropriate pending reevaluation and review of above. - Related Data Allergies Allergy/AdvReac Type Severity Reaction Status Date / Time No Known Allergies Allergy Verified 07/25/17 05:30 Home Meds: Home Meds . 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: Musculoskeletal History: Reports: Arthritis Other Musculoskeletal History: 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 Neurological History: Reports: Concussion, Seizure Other Neuro History: Alcohol withdrawal related siezures Psychiatric History: Reports: Addiction, Anxiety, Depression, Panic Attack Other Psychiatric History: ETOH abuse Endocrine/Metabolic History: Reports: None Hematologic History: Reports: None Immunologic History: Reports: None Oncologic (Cancer) History: Reports: None Dermatologic History: Reports: None - Infectious Disease History Infectious Disease History: Reports: Chicken Pox - Past Surgical History Head Surgeries/Procedures: Reports: None HEENT Surgical History: Reports: None Cardiovascular Surgical History: Reports: None Respiratory Surgical History: Reports: None GI Surgical History: Reports: Cholecystectomy, Hernia, Abdominal Female Surgical History: Reports: D&C, Tubal Ligation Endocrine Surgical History: Reports: None Neurological Surgical History: Reports: None Musculoskeletal Surgical History: Reports: None Dermatological Surgical History: Reports: None Social & Family History - Family History Family Medical History: Noncontributory - Tobacco Use Smoking Status *Q: Current Every Day Smoker Years of Tobacco use: 15 Packs/Tins Daily: 0.5 Second Hand Smoke Exposure: No - Caffeine Use Caffeine Use: Reports: None - Alcohol Use Days Per Week of Alcohol Use: 7 Number of Drinks Per Day: 4 Total Drinks Per Week: 28 - Recreational Drug Use Recreational Drug Use: No ED ROS GENERAL - Review of Systems Review Of Systems: ROS reveals no pertinent complaints other than HPI. ED EXAM, GENERAL - Physical Exam Exam: See Below (See dictation) Course - Vital Signs Text/Narrative:: I discussed with patient and transfer to [facility] for her alcohol abuse/dependence patient and declined requests discharge and states he'll take patient either to [place] or [place] Departure - Departure Time of Disposition: 05:33 Disposition: Home, Self-Care 01 Condition: Good Clinical Impression: Alcohol abuse - Discharge Information Referrals: PCP,None [Primary Care Provider] - Additional Instructions: The following information is given to patients seen in the emergency department who are being discharged to home. This information is to outline your options for follow-up care. We provide all patients seen in our emergency department with a follow-up referral. The need for follow-up, as well as the timing and circumstances, are variable depending upon the specifics of your emergency department visit. If you don't have a primary care physician on staff, we will provide you with a referral. We always advise you to contact your personal physician following an emergency department visit to inform them of the circumstance of the visit and for follow-up with them and/or the need for any referrals to a consulting specialist. The emergency department will also refer you to a specialist when appropriate. This referral assures that you have the opportunity for followup care with a specialist. All of these measure are taken in an effort to provide you with optimal care, which includes your followup. Under all circumstances we always encourage you to contact your private physician who remains a resource for coordinating your care. When calling for followup care, please make the office aware that this follow-up is from your recent emergency room visit. If for any reason you are refused follow-up, please contact the [facility] emergency department at and asked to speak to the emergency department charge nurse. Follow-up primary medical doctor proceed as discussed [facility]/or [place] for evaluation and treatment as discussed return as needed as discussed
== END 2017-07-25 05:48 | disposition home or self-care (01) ==
LOC: MW.ED 05:21
DX: F10.10 Alcohol abuse, uncomplicated (principal); F17.210 Nicotine dependence, cigarettes, uncomplicated; M19.90 Unspecified osteoarthritis, unspecified site; Z90.49 Acquired absence of other specified parts of digestive tract
CPT/HCPCS: 99282

== ENCOUNTER 2017-12-11 18:49 | Emergency (ER) | payer BC ==
[2017-12-11 19:18] VITALS: BP 134/93
--- NOTE | 2017-12-11 19:23 | EDM.PDOC ---
ED HPI GENERAL MEDICAL PROBLEM - General Chief Complaint: Head Injury Stated Complaint: PT HURT HEAD Time Seen by Provider: 12/11/17 18:51 - History of Present Illness INITIAL COMMENTS - FREE TEXT/NARRATIVE: HISTORY AND PHYSICAL: History of present illness: Patient 32-year-old female presents status post fall yesterday in which she hit her head and sustained some abrasions to her face there was no loss consciousness no neck pain or chest or abdominal pain or trauma patient states this was a slip on the porch and purely mechanical. Patient states she's had significant dizziness since then she denies nausea vomiting Review of systems: As per history of present illness and below otherwise all systems reviewed and negative. Past medical history: As per history of present illness and as reviewed below otherwise noncontributory. Surgical history: As per history of present illness and as reviewed below otherwise noncontributory. Social history: No reported history of drug or alcohol abuse. Family history: As per history of present illness and as reviewed below otherwise noncontributory. Physical exam: HEENT: Multiple minor facial abrasions noted, normocephalic, pupils reactive, negative for conjunctival pallor or scleral icterus, mucous membranes moist, throat clear, neck supple, nontender, trachea midline. Lungs: Clear to auscultation, breath sounds equal bilaterally, chest nontender. Heart: S1S2, regular, negative for clicks, rubs, or JVD. Abdomen: Soft, nondistended, nontender. Negative for masses or hepatosplenomegaly. Negative for costovertebral tenderness. Pelvis: Stable nontender. Genitourinary: Deferred. Rectal: Deferred. Extremities: Atraumatic, negative for cords or calf pain. Neurovascular unremarkable. Neuro: Awake, alert, oriented. Cranial nerves II through XII unremarkable. Cerebellum unremarkable. Motor and sensory unremarkable throughout. Exam nonfocal. Diagnostics: CT brain Therapeutics: None Impression: #1 observation status post fall #2 concussion Definitive disposition and diagnosis as appropriate pending reevaluation and review of above. head Pain Score (Numeric/FACES): 8 - Related Data Allergies Allergy/AdvReac Type Severity Reaction Status Date / Time No Known Allergies Allergy Verified 07/25/17 05:30 Home Meds: Home Meds . 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: Musculoskeletal History: Reports: Arthritis Other Musculoskeletal History: 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 Neurological History: Reports: Concussion, Seizure Other Neuro History: Alcohol withdrawal related siezures Psychiatric History: Reports: Addiction, Anxiety, Depression, Panic Attack Other Psychiatric History: ETOH abuse Endocrine/Metabolic History: Reports: None Hematologic History: Reports: None Immunologic History: Reports: None Oncologic (Cancer) History: Reports: None Dermatologic History: Reports: None - Infectious Disease History Infectious Disease History: Reports: Chicken Pox - Past Surgical History Head Surgeries/Procedures: Reports: None HEENT Surgical History: Reports: None Cardiovascular Surgical History: Reports: None Respiratory Surgical History: Reports: None GI Surgical History: Reports: Cholecystectomy, Hernia, Abdominal Female Surgical History: Reports: D&C, Tubal Ligation Endocrine Surgical History: Reports: None Neurological Surgical History: Reports: None Musculoskeletal Surgical History: Reports: None Dermatological Surgical History: Reports: None Social & Family History - Family History Family Medical History: Noncontributory - Tobacco Use Smoking Status *Q: Current Every Day Smoker Years of Tobacco use: 10 Packs/Tins Daily: 1 Second Hand Smoke Exposure: No - Caffeine Use Caffeine Use: Reports: None - Alcohol Use Days Per Week of Alcohol Use: 7 Number of Drinks Per Day: 4 Total Drinks Per Week: 28 - Recreational Drug Use Recreational Drug Use: No ED ROS GENERAL - Review of Systems Review Of Systems: ROS reveals no pertinent complaints other than HPI. ED EXAM, HEAD INJURY - Physical Exam Exam: See Below (See dictation) Course - Vital Signs Last Recorded V/S: Last Vital Signs Temp 36.7 C 12/11/17 19:13 Pulse 118 H 12/11/17 19:13 Resp 16 12/11/17 19:13 BP 134/93 H 12/11/17 19:13 Pulse Ox 99 12/11/17 19:13 - Orders/Labs/Meds Orders: Active Orders 24 hr Category Date Time Status Head wo Cont [CT] Stat Exams 12/11/17 19:19 Ordered Departure - Departure Time of Disposition: 19:22 Disposition: Home, Self-Care 01 Condition: Good Clinical Impression: Concussion with no loss of consciousness - Discharge Information Referrals: PCP,None [Primary Care Provider] - Additional Instructions: The following information is given to patients seen in the emergency department who are being discharged to home. This information is to outline your options for follow-up care. We provide all patients seen in our emergency department with a follow-up referral. The need for follow-up, as well as the timing and circumstances, are variable depending upon the specifics of your emergency department visit. If you don't have a primary care physician on staff, we will provide you with a referral. We always advise you to contact your personal physician following an emergency department visit to inform them of the circumstance of the visit and for follow-up with them and/or the need for any referrals to a consulting specialist. The emergency department will also refer you to a specialist when appropriate. This referral assures that you have the opportunity for followup care with a specialist. All of these measure are taken in an effort to provide you with optimal care, which includes your followup. Under all circumstances we always encourage you to contact your private physician who remains a resource for coordinating your care. When calling for followup care, please make the office aware that this follow-up is from your recent emergency room visit. If for any reason you are refused follow-up, please contact the [facility] emergency department at and asked to speak to the emergency department charge nurse. [facility] Specialty Care - Neurology Professional Building [address] [place] [address], [address] [place] [address] Motrin/Tylenol as directed which fluids follow-up primary medical doctor call to schedule routine appointment with neurology clinic above return as needed as discussed - My Orders Last 24 Hours: My Active Orders 12/11/17 19:19 Head wo Cont [CT] Stat - Assessment/Plan Last 24 Hours: My Active Orders 12/11/17 19:19 Head wo Cont [CT] Stat
--- NOTE | 2017-12-12 17:04 | CT ---
EXAM DATE: 12/11/17 PATIENT'S AGE: 32 Patient: WILY MONTERO Facility: [facility], [place] Site . Site : 1985 Study: CT Head [id number]/28/2018 7:59:17 PM Ordering Physician: Lorne Strange Final Report: INDICATION: Fell. Hit head. TECHNIQUE: CT head without IV contrast. COMPARISON: 02/26/2017. FINDINGS: Mild soft tissue swelling in frontal region/forehead. No acute intracranial hemorrhage, edema, or mass effect. No skull fracture. Remainder negative. IMPRESSION: No acute intracranial disease. Mild soft tissue swelling frontal scalp anteriorly. Please note that all CT scans at this facility use dose modulation, iterative reconstruction, and/or weight-based dosing when appropriate to reduce radiation dose to as low as reasonably achievable. Dictated by Luis Enrique Merrill MD @ Dec 11 2017 8:02PM (Electronic Signature) Report Signed by Proxy. MTDD
== END 2017-12-11 20:30 | disposition home or self-care (01) ==
LOC: MW.ED 18:49
DX: S06.0X0A Concussion without loss of consciousness, initial encounter (principal); F17.210 Nicotine dependence, cigarettes, uncomplicated; W01.10XA Fall on same level from slipping, tripping and stumbling with subsequent striking against unspecified object, initial encounter
CPT/HCPCS: 70450; 70450-26; 99284-25

== ENCOUNTER 2019-12-24 08:20 | Emergency (ER) | payer BC ==
--- NOTE | 2019-12-24 08:29 | EDM.PDOC ---
ED HPI GENERAL MEDICAL PROBLEM - General Chief Complaint: Allergic Reaction Stated Complaint: ALLERGIC REACTION Time Seen by Provider: 12/24/19 08:28 Source of Information: Reports: Patient History Limitations: Reports: No Limitations - History of Present Illness INITIAL COMMENTS - FREE TEXT/NARRATIVE: Patient is a 34-year-old female who is complaining of having a rash on her face and neck a little more severely on the right side that is gotten worse since she stopped taking prednisone 1 week ago. Patient was on prednisone for facial rash for the 9 days prior this. Patient has had this rash previously on her face but has not been able to get into see a parking lot chauffeur for treatment. Patient denies any wheezing or any swelling to her oropharynx. Denies any rash anywhere else other than her face and upper neck. She states this is more burning then it is itchy. Duration: Week(s): (1), Getting Worse Location: Reports: Face, Neck Quality: Reports: Burning Severity: Mild Improves with: Reports: None Worsens with: Reports: None Associated Symptoms: Denies: Cough, Shortness of Breath - Related Data Allergies Allergy/AdvReac Type Severity Reaction Status Date / Time caffeine Allergy Rash Verified 12/24/19 08:23 Home Meds: Home Meds . 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: Musculoskeletal History: Reports: Arthritis Other Musculoskeletal History: 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 Neurological History: Reports: Concussion, Seizure Other Neuro History: Alcohol withdrawal related siezures Psychiatric History: Reports: Addiction, Anxiety, Depression, Panic Attack Other Psychiatric History: ETOH abuse Endocrine/Metabolic History: Reports: None Hematologic History: Reports: None Immunologic History: Reports: None Oncologic (Cancer) History: Reports: None Dermatologic History: Reports: None - Infectious Disease History Infectious Disease History: Reports: None - Past Surgical History Head Surgeries/Procedures: Reports: None HEENT Surgical History: Reports: None Cardiovascular Surgical History: Reports: None Respiratory Surgical History: Reports: None GI Surgical History: Reports: Cholecystectomy, Hernia, Abdominal Female Surgical History: Reports: D&C, Tubal Ligation Endocrine Surgical History: Reports: None Neurological Surgical History: Reports: None Musculoskeletal Surgical History: Reports: None Dermatological Surgical History: Reports: None Social & Family History - Family History Family Medical History: Noncontributory - Tobacco Use Smoking Status *Q: Current Every Day Smoker Years of Tobacco use: 15 Packs/Tins Daily: 0.5 - Caffeine Use Caffeine Use: Reports: None - Recreational Drug Use Recreational Drug Use: No ED ROS ALLERGIC REACTION - Review of Systems Review Of Systems: Comprehensive ROS is negative, except as noted in HPI. ED EXAM GENERAL NO PERIP PULSE - Physical Exam Exam: See Below Text/Narrative:: Exam: See Below Exam Limited By: No Limitations Head: Atraumatic. Oropharynx shows no angioedema or erythema. Neck: Normal Inspection. No: Carotid Bruit, Lymphadenopathy (R) Respiratory/Chest: No Respiratory Distress, Lungs Clear, Normal Breath Sounds, No Accessory Muscle Use. No: Chest Non-Tender seen. Cardiovascular: Normal Peripheral Pulses, Regular Rate, Rhythm, No Edema, No JVD GI/Abdominal: Normal Bowel Sounds, Tender. No: Non-Tender, Splenomegaly Back Exam: Normal Inspection. No: CVA Tenderness (R) Extremities: Normal Inspection. No: No Pedal Edema Neurological: Alert, Oriented, Normal Cognition Psychiatric: Normal Affect Skin Exam: Warm and dry. Positive macular rash on face and upper neck worse on the right than on the left. Lymphatic: No Adenopathy Course - Vital Signs Text/Narrative:: I am restarting patient on her 10 mg daily of prednisone and recommend she get [id number] Pepcid and Benadryl as an antihistamine. I am encouraging her to have her PCP attempt to get her into see a parking lot chauffeur as soon as possible and she may return to emergency department if symptoms worsen. Last Recorded V/S: Last Vital Signs Temp 36.4 C 12/24/19 08:21 Pulse 102 H 12/24/19 08:21 Resp 18 12/24/19 08:21 BP 135/90 12/24/19 08:21 Pulse Ox 99 12/24/19 08:21 Departure - Departure Time of Disposition: 08:43 Disposition: Home, Self-Care 01 Condition: Good Clinical Impression: Dermatitis - Discharge Information Referrals: PCP,Unobtain [Primary Care Provider] - Additional Instructions: [id number] Pepcid and Benadryl as directed. Prednisone as prescribed. Follow-up with a parking lot chauffeur as soon as possible. Return to ER if worse. Care Plan Goals: The following information is given to patients seen in the emergency department who are being discharged to home. This information is to outline your options for follow-up care. We provide all patients seen in our emergency department with a follow-up referral. The need for follow-up, as well as the timing and circumstances, are variable depending upon the specifics of your emergency department visit. If you don't have a primary care physician on staff, we will provide you with a referral. We always advise you to contact your personal physician following an emergency department visit to inform them of the circumstance of the visit and for follow-up with them and/or the need for any referrals to a consulting specialist. The emergency department will also refer you to a specialist when appropriate. This referral assures that you have the opportunity for follow-up care with a specialist. All of these measure are taken in an effort to provide you with optimal care, which includes your follow-up. Under all circumstances we always encourage you to contact your private physician who remains a resource for coordinating your care. When calling for follow-up care, please make the office aware that this follow-up is from your recent emergency room visit. If for any reason you are refused follow-up, please contact the [facility] Emergency Department at and asked to speak to the emergency department charge nurse. Sepsis Event Note - Evaluation Sepsis Screening Result: No Definite Risk - Focused Exam Vital Signs: Vital Signs Temp Pulse Resp BP Pulse Ox 12/24/19 08:21 36.4 C 102 H 18 135/90 99 Date Exam was Performed: 12/24/19 Time Exam was Performed: 08:39
== END 2019-12-24 09:07 | disposition home or self-care (01) ==
LOC: MW.ED 08:20
CPT/HCPCS: 99282

== ENCOUNTER 2020-01-08 17:12 | Emergency (ER) | payer BC ==
[2020-01-08 19:30] VITALS: BP 134/95; PULSE 74
--- NOTE | 2020-01-08 20:14 | EDM.PDOC ---
ED [facility] GENERAL MEDICAL PROBLEM - General Chief Complaint: Skin Complaint Stated Complaint: RASH ON FACE AND NECK Time Seen by Provider: 01/08/20 20:13 - History of Present Illness INITIAL COMMENTS - FREE TEXT/NARRATIVE: She is a 34-year-old female no significant past medical history presenting with a chief complaint of rash to the face. Patient states the rash been present for several weeks now. Patient states the rash is burning in nature. Patient reports prior medical visits and has been given oral prednisone and topical steroids with minimal relief. Patient says the rash is spreading down the neck a little bit. Patient does report prior history with acne problems but have never been this severe. Patient has not attempted to establish dermatology appointment but that is several months away. Patient denies any fevers, chills , discharge, systemic symptoms. Pmhx: None Pshx: None Family Hx: noncontributory Smoking history? no Etoh use? none Drug use? none In addition to that documented in the HPI above, the additional ROS was obtained : Constitutional: Denies fevers or chills Eyes: Denies vision changes ENMT: Denies sore throat CV: Denies chest pain Resp: Denies SOB GI: Denies vomiting or diarrhea : Denies painful urination MSK: Denies recent trauma Skin: Denies new rashes Neuro: Denies new numbness or tingling or weakness I have reviewed the triage vital signs Const: Well nourished, well developed, appears stated age Eyes: PERRL, no conjunctival injection HENT: NCAT, Neck supple without meningismus CV: RRR, Warm, well-perfused extremities RESP: CTAB, Unlabored respiratory effort GI: soft, non-tender, non-distended, no masses MSK: No gross deformities appreciated Skin: Scattered acne to the face and neck. No real pustules or vesicles noted. No mucous membrane involvement no rash elsewhere on the body Neuro: Alert, technical applications scientist II-XII grossly intact. Sensation and motor function of extremities grossly intact. Psych: Appropriate mood and affect Assessment and plan: Patient 34-year-old female with likely acne to the face. Patient has attempted steroids without much improvement. Given severity of this I will start the patient on doxycycline to see if that causes any relief of her symptoms. Patient has no evidence of allergic reaction, infectious etiology, systemics syndrome going on. Patient will be discharged and instructed to follow-up with dermatology. Patient given red flags to return to the emergency department. 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: Musculoskeletal History: Reports: Arthritis Other Musculoskeletal History: 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 Neurological History: Reports: Concussion, Seizure Other Neuro History: Alcohol withdrawal related siezures Psychiatric History: Reports: Addiction, Anxiety, Depression, Panic Attack Other Psychiatric History: ETOH abuse Endocrine/Metabolic History: Reports: None Hematologic History: Reports: None Immunologic History: Reports: None Oncologic (Cancer) History: Reports: None Dermatologic History: Reports: None - Infectious Disease History Infectious Disease History: Reports: None - Past Surgical History Head Surgeries/Procedures: Reports: None HEENT Surgical History: Reports: None Cardiovascular Surgical History: Reports: None Respiratory Surgical History: Reports: None GI Surgical History: Reports: Cholecystectomy, Hernia, Abdominal Female Surgical History: Reports: D&C, Tubal Ligation Endocrine Surgical History: Reports: None Neurological Surgical History: Reports: None Musculoskeletal Surgical History: Reports: None Dermatological Surgical History: Reports: None Social & Family History - Family History Family Medical History: Noncontributory - Tobacco Use Smoking Status *Q: Current Every Day Smoker Years of Tobacco use: 15 Packs/Tins Daily: 0.1 - Caffeine Use Caffeine Use: Reports: None - Recreational Drug Use Recreational Drug Use: No ED ROS GENERAL - Review of Systems Review Of Systems: See Below ED EXAM, SKIN/RASH Exam: See Below Course - Vital Signs Last Recorded V/S: Last Vital Signs Temp 36.1 C 01/08/20 19:26 Pulse 74 01/08/20 19:26 Resp 16 01/08/20 19:26 BP 134/95 H 01/08/20 19:26 Pulse Ox 98 01/08/20 19:26 Departure - Departure Time of Disposition: 20:13 Disposition: Home, Self-Care 01 Clinical Impression: Acne vulgaris - Discharge Information Prescriptions: Doxycycline [Vibramycin] 100 mg PO BID #20 cap Instructions: Acne, [id number] Referrals: PCP,None [Primary Care Provider] - Forms: ED Department Discharge Additional Instructions: The following information is given to patients seen in the emergency department who are being discharged to home. This information is to outline your options for follow-up care. We provide all patients seen in our emergency department with a follow-up referral. The need for follow-up, as well as the timing and circumstances, are variable depending upon the specifics of your emergency department visit. If you don't have a primary care physician on staff, we will provide you with a referral. We always advise you to contact your personal physician following an emergency department visit to inform them of the circumstance of the visit and for follow-up with them and/or the need for any referrals to a consulting specialist. The emergency department will also refer you to a specialist when appropriate. This referral assures that you have the opportunity for follow-up care with a specialist. All of these measure are taken in an effort to provide you with optimal care, which includes your follow-up. Under all circumstances we always encourage you to contact your private physician who remains a resource for coordinating your care. When calling for follow-up care, please make the office aware that this follow-up is from your recent emergency room visit. If for any reason you are refused follow-up, please contact the [facility] Emergency Department at and asked to speak to the emergency department charge nurse. Sepsis Event Note - Evaluation Sepsis Screening Result: No Definite Risk - Focused Exam Vital Signs: Vital Signs Temp Pulse Resp BP Pulse Ox 01/08/20 19:26 36.1 C 74 16 134/95 H 98 01/08/20 17:39 35.5 C L 81 18 121/79 98 Date Exam was Performed: 01/09/20 Time Exam was Performed: 04:22
== END 2020-01-08 20:23 | disposition home or self-care (01) ==
LOC: MW.ED 17:12
DX: L70.0 Acne vulgaris (principal); Z88.8 Allergy status to other drugs, medicaments and biological substances
CPT/HCPCS: 99282